=== PATIENT | female | born 1960 | race African-American/Black ===

== ENCOUNTER 2016-10-21 10:12 | Emergency (ER) | payer MEDICARE, MEDICAID ==
[~2016-10-21] VITALS: Ht 157.5 cm; Wt 59.0 kg
[~2016-10-21 10:12] MED LIST: ATOR80TA76 PO; CARV3.1242 PO; DIGO125T82 PO; FURO40TA5 PO; GLIP10TA10 PO; LEVO112T7 PO; LEVO500T15 PO; LORA2TAB95 PO; MAGN400T26 PO; METF1000 PO; PANT40TA4 PO; SITA100T6 PO; WARF3TAB28 PO
[2016-10-21] MEDS ORDERED: HYDROXYZINE 25MG TABLET PO ONE (14:00)
[2016-10-21] MEDS ORDERED: KETOROLAC 30MG/ML VIAL IV ONE (14:00)
[2016-10-21 14:12] VITALS: BP 126/54
== END 2016-10-21 14:33 | disposition home or self-care (01) ==
LOC: ER 11:31
DX: I87.2 Venous insufficiency (chronic) (peripheral) (principal); I87.8 Other specified disorders of veins; I50.9 Heart failure, unspecified; E11.9 Type 2 diabetes mellitus without complications; E03.9 Hypothyroidism, unspecified; Z79.01 Long term (current) use of anticoagulants; Z79.899 Other long term (current) drug therapy; Z88.1 Allergy status to other antibiotic agents; Z88.8 Allergy status to other drugs, medicaments and biological substances
CPT/HCPCS: 96374; 99284; J1885

== ENCOUNTER 2016-12-03 08:34 | Emergency (ER) | payer MEDICARE, MEDICAID ==
[~2016-12-03] VITALS: Ht 152.4 cm; Wt 55.0 kg
[2016-12-03 08:50] VITALS: BP 163/116
[2016-12-03] MEDS ORDERED: LORAZEPAM 0.5MG TABLET PO ONE (11:15)
== END 2016-12-03 11:49 | disposition home or self-care (01) ==
LOC: ER 10:16
DX: F41.9 Anxiety disorder, unspecified (principal); Z88.1 Allergy status to other antibiotic agents; Z88.6 Allergy status to analgesic agent; Z79.899 Other long term (current) drug therapy; I11.0 Hypertensive heart disease with heart failure; I50.9 Heart failure, unspecified; E11.9 Type 2 diabetes mellitus without complications; E03.9 Hypothyroidism, unspecified; Z76.0 Encounter for issue of repeat prescription
CPT/HCPCS: 71010; 93005; 99284

== ENCOUNTER 2017-01-11 07:16 | Inpatient (IN) | payer MEDICARE, MEDICAID ==
[~2017-01-11] VITALS: Ht 157.5 cm; Wt 49.5 kg
[~2017-01-11 07:16] MED LIST changes: +ATOR-2 PO; -ATOR80TA76 PO; -LEVO500T15 PO; +LEVO500T2 PO; +SITA100T11 PO; -SITA100T6 PO
[2017-01-11] MEDS ORDERED: IPRATROPIUM BROMIDE (0.02%) 0.5MG/2.5ML NEB HHN STA (07:19)
[2017-01-11] MEDS ORDERED: ALBUTEROL (0.083%) 2.5MG/3ML NEB HHN STA (07:19)
[2017-01-11] MEDS ORDERED: ONDANSETRON HCL 4MG/2ML VIAL IV STA (07:19)
[2017-01-11] MEDS ORDERED: FUROSEMIDE 40MG/4ML VIAL IVP ONE (07:30)
[2017-01-11] MEDS ORDERED: NITROGLYCERIN OINT 1GM/INCH UDPKT TD ONE (07:30)
[2017-01-11 07:46] LABS: BASOPHILS % 1.3 % (0.0-2.0); EOSINOPHILS % 1.1 % (0.0-5.0); HEMOGLOBIN. 9.2 g/dL (12.0-16.0); LYMPHOCYTES % 16.4 % (20.0-50.0); MEAN CORPUSCULAR HEMOGLOBIN 22.4 pg (28.0-32.0); MEAN CORPUSCULAR VOLUME 75.3 fL (81.0-99.0); MEAN PLATELET VOLUME 8.5 fl (7.4-10.4); MONOCYTES % 6.5 % (2.0-8.0); NEUTROPHILS % 74.7 % (40.0-76.0); PLATELET 281 x1000/uL (130-400); RED BLOOD CELL COUNT 4.12 mill/uL (4.2-5.4); RED CELL DISTRIBUTION WIDTH 20.7 % (11.6-14.6)
[2017-01-11 07:52] LABS: CHLORIDE 98 mEq/L (98-107)
[2017-01-11 07:54] LABS: INR 2.3; PARTIAL THROMBOPLASTIN TIME 30.8 sec (24.0-34.0); PROTHROMBIN TIME 24.1 sec
[2017-01-11 07:59] LABS: CARBON DIOXIDE 26 mEq/L (21-32)
[2017-01-11 08:03] LABS: TROPONIN I < 0.02 ng/mL (0.00-0.04)
[2017-01-11 08:08] LABS: CLARITY URINE CLOUDY (CLEAR); COLOR URINE DARK YELLOW (YELLOW); KETONES URINE TRACE (NEGATIVE); LEUKOCYTE ESTERASE URINE NEGATIVE (NEGATIVE); NITRITE URINE NEGATIVE (NEGATIVE); OCCULT BLOOD URINE NEGATIVE (NEGATIVE); PROTEIN URINE 2+ (NEGATIVE); SPECIFIC GRAVITY URINE 1.029 (1.005-1.030)
[2017-01-11 08:12] LABS: BG BASE EXCESS -1.1 mmol/L (-2.0-2.0); BG BILEVEL POS AIRWAY PRESSURE 15/5; BG CARBOXYHEMOGLOBIN 1.5 % (0.5-1.5); BG DEOXYHEMOGLOBIN 6.7 % (0.0-5.0); BG FRACTION INSPIRED OXYGEN 40; BG HCO3 ACT 22.7 mmol/L (22.0-26.0); BG OXYGEN SATURATION 93.2 % (92.0-98.5); BG OXYHEMOGLOBIN 91.8 % (94.0-97.0); BG PCO2 34.4 mmHg (35.0-45.0); BG PH 7.437 (7.350-7.450); BG PO2 68.4 mmHg (75.0-100.0); BG SAMPLE SITE RIGHT RADIAL; BG TOTAL HEMOGLOBIN 10.4 g/dL (12.0-18.0); BG VENT MODE MASK - BIPAP
[2017-01-11 08:15] LABS: DIGOXIN 1.4 ng/mL (0.9-2.0)
[2017-01-11] MEDS ORDERED: LEVOFLOXACIN 500MG PREMIX 100 ML IV ONE (08:15)
[2017-01-11 13:21] LABS: BG BASE EXCESS -1.4 mmol/L (-2.0-2.0); BG BILEVEL POS AIRWAY PRESSURE 15/5; BG CARBOXYHEMOGLOBIN 1.5 % (0.5-1.5); BG DEOXYHEMOGLOBIN 2.5 % (0.0-5.0); BG HCO3 ACT 22.7 mmol/L (22.0-26.0); BG METHEMOGLOBIN 0.1 % (0.0-1.5); BG OXYGEN SATURATION 97.5 % (92.0-98.5); BG OXYHEMOGLOBIN 95.9 % (94.0-97.0); BG PCO2 35.2 mmHg (35.0-45.0); BG PH 7.427 (7.350-7.450); BG PO2 93.2 mmHg (75.0-100.0); BG SAMPLE SITE RIGHT RADIAL; BG TOTAL HEMOGLOBIN 9.2 g/dL (12.0-18.0); BG VENT MODE MASK - BIPAP; BG VENT RATE 12 set
[2017-01-11] MEDS ORDERED: ONDANSETRON HCL 4MG/2ML VIAL IV PRN (15:00)
[2017-01-11] MEDS ORDERED: DEXTROSE 50% WATER 50ML SYRINGE IV PRN (15:15)
[2017-01-11] MEDS: DIGOXIN 125MCG TABLET PO SCH (17:17)
[2017-01-11] MEDS: INSULIN LISPRO 100 UNITS/ML SUBCUT SCH ×2 (17:20→21:00)
[2017-01-11] MEDS: BLOOD SUGAR DIAGNOSTIC STRIP TEST SCH ×2 (17:20→21:21)
[2017-01-11] MEDS ORDERED: WARFARIN SODIUM 2MG TABLET PO NR (18:00)
[2017-01-12 07:05] LABS: BASOPHILS % 0.3 % (0.0-2.0); HEMATOCRIT. 27.5 % (36.0-48.0); HEMOGLOBIN. 8.4 g/dL (12.0-16.0); LYMPHOCYTES % 7.4 % (20.0-50.0); MEAN CORPUSCULAR HEMOGLOBIN 22.5 pg (28.0-32.0); MEAN CORPUSCULAR VOLUME 73.6 fL (81.0-99.0); MEAN PLATELET VOLUME 8.2 fl (7.4-10.4); MONOCYTES % 8.8 % (2.0-8.0); NEUTROPHILS % 83.5 % (40.0-76.0); PLATELET 188 x1000/uL (130-400); RED BLOOD CELL COUNT 3.74 mill/uL (4.2-5.4); RED CELL DISTRIBUTION WIDTH 20.5 % (11.6-14.6)
[2017-01-12 07:10] LABS: INR 2.8; PROTHROMBIN TIME 29.4 sec
[2017-01-12] MEDS: BLOOD SUGAR DIAGNOSTIC STRIP TEST SCH ×4 (07:30→21:25)
[2017-01-12 07:38] LABS: CARBON DIOXIDE 29 mEq/L (21-32); CHLORIDE 101 mEq/L (98-107); HDL CHOLESTEROL 21 mg/dL (40-59); LDL CHOLESTEROL 28 mg/dL (5-100); TOTAL IRON BINDING CAPACITY 298 ug/dL (250-450)
[2017-01-12] MEDS: INSULIN LISPRO 100 UNITS/ML SUBCUT SCH ×4 (08:00→21:00)
[2017-01-12 08:36] LABS: BG BASE EXCESS 4.6 mmol/L (-2.0-2.0); BG CARBOXYHEMOGLOBIN 1.4 % (0.5-1.5); BG FRACTION INSPIRED OXYGEN 28; BG HCO3 ACT 29.5 mmol/L (22.0-26.0); BG METHEMOGLOBIN 0.3 % (0.0-1.5); BG OXYGEN SATURATION 96.9 % (92.0-98.5); BG OXYHEMOGLOBIN 95.3 % (94.0-97.0); BG PCO2 45.8 mmHg (35.0-45.0); BG PH 7.427 (7.350-7.450); BG PO2 93.9 mmHg (75.0-100.0); BG SAMPLE SITE RIGHT RADIAL; BG TOTAL HEMOGLOBIN 9.9 g/dL (12.0-18.0); BG VENT MODE NASAL CANNULA
[2017-01-12] MEDS: PANTOPRAZOLE 40MG DR TABLET PO SCH (08:36)
[2017-01-12] MEDS: LEVOFLOXACIN 500MG PREMIX 100 ML IV SCH (08:36)
[2017-01-12] MEDS: MAGNESIUM OXIDE 400MG TABLET PO SCH (08:37)
[2017-01-12] MEDS: LEVOTHYROXINE SODIUM 112MCG TABLET PO SCH (08:37)
[2017-01-12] MEDS: CARVEDILOL 3.125 MG TABLET PO SCH ×3 (08:54→21:00)
[2017-01-12] MEDS ORDERED: FUROSEMIDE 40MG/4ML VIAL IVP SCH (09:00)
[2017-01-12] MEDS ORDERED: MAGNESIUM 2 G PREMIX 50 ML IV SCH (12:30)
[2017-01-12] MEDS ORDERED: SODIUM CHLORIDE 0.9% 250 ML IV NR (13:00)
[2017-01-12 15:01] LABS: HEMOGLOBIN 9.5 g/dL (12.0-16.0)
[2017-01-12] MEDS: DIGOXIN 125MCG TABLET PO SCH (17:42)
[2017-01-12] MEDS ORDERED: WARFARIN SODIUM 1MG TABLET PO NR (18:00)
[2017-01-12] MEDS: IPRATROPIUM/ALBUTEROL 0.5-3(2.5)MG/3ML NEB INH PRN (23:58)
[2017-01-13 07:01] LABS: INR 2.5; PROTHROMBIN TIME 25.5 sec
[2017-01-13 07:08] LABS: BASOPHILS % 0.2 % (0.0-2.0); EOSINOPHILS % 0.1 % (0.0-5.0); HEMATOCRIT. 27.4 % (36.0-48.0); HEMOGLOBIN. 8.1 g/dL (12.0-16.0); LYMPHOCYTES % 7.6 % (20.0-50.0); MEAN CORPUSCULAR HEMOGLOBIN 22.1 pg (28.0-32.0); MEAN CORPUSCULAR VOLUME 74.4 fL (81.0-99.0); MEAN PLATELET VOLUME 8.6 fl (7.4-10.4); MONOCYTES % 9.3 % (2.0-8.0); NEUTROPHILS % 82.8 % (40.0-76.0); PLATELET 207 x1000/uL (130-400); RED BLOOD CELL COUNT 3.68 mill/uL (4.2-5.4); RED CELL DISTRIBUTION WIDTH 20.3 % (11.6-14.6)
[2017-01-13 07:20] LABS: CARBON DIOXIDE 31 mEq/L (21-32); CHLORIDE 98 mEq/L (98-107)
[2017-01-13 07:22] LABS: PHOSPHORUS 2.6 mg/dL (2.5-4.9)
[2017-01-13] MEDS: BLOOD SUGAR DIAGNOSTIC STRIP TEST SCH ×4 (07:30→20:47)
[2017-01-13] MEDS: INSULIN LISPRO 100 UNITS/ML SUBCUT SCH ×4 (08:00→21:00)
[2017-01-13] MEDS: LEVOTHYROXINE SODIUM 112MCG TABLET PO SCH (08:48)
[2017-01-13] MEDS: MAGNESIUM OXIDE 400MG TABLET PO SCH (08:48)
[2017-01-13] MEDS: LEVOFLOXACIN 500MG PREMIX 100 ML IV SCH (08:48)
[2017-01-13] MEDS: PANTOPRAZOLE 40MG DR TABLET PO SCH (08:48)
[2017-01-13] MEDS: CARVEDILOL 3.125 MG TABLET PO SCH ×2 (08:49→20:48)
[2017-01-13 11:05] LABS: HEMATOCRIT 29.3 % (36.0-48.0); HEMOGLOBIN 8.7 g/dL (12.0-16.0)
[2017-01-13] MEDS ORDERED: FUROSEMIDE 20MG/2ML VIAL IVP SCH (11:15)
[2017-01-13] MEDS: DIGOXIN 125MCG TABLET PO SCH (17:16)
[2017-01-13] MEDS ORDERED: WARFARIN SODIUM 1MG TABLET PO SCH (18:00)
[2017-01-13] MEDS: IPRATROPIUM/ALBUTEROL 0.5-3(2.5)MG/3ML NEB INH PRN (20:18)
[2017-01-14 07:20] LABS: BASOPHILS % 0.6 % (0.0-2.0); EOSINOPHILS % 0.2 % (0.0-5.0); HEMATOCRIT. 27.7 % (36.0-48.0); HEMOGLOBIN. 8.3 g/dL (12.0-16.0); LYMPHOCYTES % 10.8 % (20.0-50.0); MEAN CORPUSCULAR HEMOGLOBIN 22.2 pg (28.0-32.0); MEAN CORPUSCULAR VOLUME 74.2 fL (81.0-99.0); MEAN PLATELET VOLUME 8.7 fl (7.4-10.4); MONOCYTES % 9.1 % (2.0-8.0); NEUTROPHILS % 79.3 % (40.0-76.0); PLATELET 168 x1000/uL (130-400); RED BLOOD CELL COUNT 3.73 mill/uL (4.2-5.4); RED CELL DISTRIBUTION WIDTH 20.1 % (11.6-14.6)
[2017-01-14 07:29] LABS: INR 2.8; PROTHROMBIN TIME 29.6 sec
[2017-01-14] MEDS: BLOOD SUGAR DIAGNOSTIC STRIP TEST SCH ×4 (07:35→21:09)
[2017-01-14 07:37] LABS: CARBON DIOXIDE 33 mEq/L (21-32); CHLORIDE 98 mEq/L (98-107)
[2017-01-14] MEDS: INSULIN LISPRO 100 UNITS/ML SUBCUT SCH ×5 (08:00→21:13)
[2017-01-14] MEDS: FUROSEMIDE 40MG/4ML VIAL IVP SCH ×3 (08:24→17:51)
[2017-01-14] MEDS: LEVOFLOXACIN 500MG PREMIX 100 ML IV SCH (08:24)
[2017-01-14] MEDS: LEVOTHYROXINE SODIUM 112MCG TABLET PO SCH (08:24)
[2017-01-14] MEDS: MAGNESIUM OXIDE 400MG TABLET PO SCH (08:25)
[2017-01-14] MEDS: CARVEDILOL 3.125 MG TABLET PO SCH ×2 (08:25→21:00)
[2017-01-14] MEDS: PANTOPRAZOLE 40MG DR TABLET PO SCH (08:27)
[2017-01-14] MEDS: IPRATROPIUM/ALBUTEROL 0.5-3(2.5)MG/3ML NEB INH PRN ×3 (10:53→21:51)
[2017-01-14] MEDS: ASCORBIC ACID 500 MG TABLET PO SCH (11:47)
[2017-01-14] MEDS: SPIRONOLACTONE 25MG TABLET PO SCH (11:47)
[2017-01-14 12:09] LABS: VITAMIN B12 SERUM 1106 pg/mL (211-911)
[2017-01-14 12:55] LABS: FOLIC ACID (FOLATE) SERUM > 20.00 ng/mL (>5.38)
[2017-01-14] MEDS: FERROUS SULFATE 325MG TABLET PO SCH ×2 (13:18→17:51)
[2017-01-14] MEDS: GUAIFENESIN-DM 200MG-20MG/10ML UDC PO PRN ×2 (13:20→19:07)
[2017-01-14] MEDS: DIGOXIN 125MCG TABLET PO SCH (17:51)
[2017-01-14] MEDS ORDERED: WARFARIN SODIUM 1MG TABLET PO SCH (18:00)
[2017-01-15 06:58] LABS: INR 3.5; PROTHROMBIN TIME 36.7 sec
[2017-01-15 07:19] LABS: BASOPHILS % 0.2 % (0.0-2.0); EOSINOPHILS % 0.9 % (0.0-5.0); HEMATOCRIT. 27.4 % (36.0-48.0); HEMOGLOBIN. 8.4 g/dL (12.0-16.0); MEAN CORPUSCULAR HEMOGLOBIN 22.6 pg (28.0-32.0); MEAN CORPUSCULAR VOLUME 73.9 fL (81.0-99.0); MEAN PLATELET VOLUME 8.9 fl (7.4-10.4); MONOCYTES % 12.1 % (2.0-8.0); NEUTROPHILS % 72.8 % (40.0-76.0); PLATELET 174 x1000/uL (130-400); RED CELL DISTRIBUTION WIDTH 19.8 % (11.6-14.6)
[2017-01-15 07:49] LABS: CARBON DIOXIDE 36 mEq/L (21-32); CHLORIDE 97 mEq/L (98-107)
[2017-01-15] MEDS: INSULIN LISPRO 100 UNITS/ML SUBCUT SCH ×4 (08:00→20:58)
[2017-01-15] MEDS: BLOOD SUGAR DIAGNOSTIC STRIP TEST SCH ×4 (08:01→20:49)
[2017-01-15] MEDS: FERROUS SULFATE 325MG TABLET PO SCH ×3 (08:01→18:07)
[2017-01-15] MEDS: FUROSEMIDE 40MG/4ML VIAL IVP SCH ×2 (08:01→16:58)
[2017-01-15] MEDS: MAGNESIUM OXIDE 400MG TABLET PO SCH (08:01)
[2017-01-15] MEDS: LEVOTHYROXINE SODIUM 112MCG TABLET PO SCH (08:01)
[2017-01-15] MEDS: LOSARTAN POTASSIUM 25 MG TABLET PO SCH (08:02)
[2017-01-15] MEDS: LEVOFLOXACIN 500MG PREMIX 100 ML IV SCH (08:02)
[2017-01-15] MEDS: CARVEDILOL 3.125 MG TABLET PO SCH ×2 (08:02→20:49)
[2017-01-15] MEDS: SPIRONOLACTONE 25MG TABLET PO SCH (08:02)
[2017-01-15] MEDS: ASCORBIC ACID 500 MG TABLET PO SCH (08:02)
[2017-01-15] MEDS: FAMOTIDINE 20MG TABLET PO SCH ×2 (08:02→20:48)
[2017-01-15] MEDS: GUAIFENESIN-DM 200MG-20MG/10ML UDC PO PRN ×3 (08:05→20:48)
[2017-01-15] MEDS: IPRATROPIUM/ALBUTEROL 0.5-3(2.5)MG/3ML NEB INH PRN ×2 (08:31→20:30)
[2017-01-15] MEDS: DIGOXIN 125MCG TABLET PO SCH (18:07)
[2017-01-16] MEDS: LEVOTHYROXINE SODIUM 112MCG TABLET PO SCH (06:38)
[2017-01-16] MEDS: BLOOD SUGAR DIAGNOSTIC STRIP TEST SCH ×4 (06:38→21:25)
[2017-01-16] MEDS: GUAIFENESIN-DM 200MG-20MG/10ML UDC PO PRN ×3 (07:00→21:24)
[2017-01-16] MEDS: INSULIN LISPRO 100 UNITS/ML SUBCUT SCH ×4 (07:00→21:00)
[2017-01-16 07:34] LABS: BASOPHILS % 0.6 % (0.0-2.0); EOSINOPHILS % 1.1 % (0.0-5.0); HEMATOCRIT. 27.3 % (36.0-48.0); HEMOGLOBIN. 8.3 g/dL (12.0-16.0); LYMPHOCYTES % 15.8 % (20.0-50.0); MEAN CORPUSCULAR HEMOGLOBIN 22.6 pg (28.0-32.0); MEAN CORPUSCULAR VOLUME 74.5 fL (81.0-99.0); MEAN PLATELET VOLUME 8.5 fl (7.4-10.4); MONOCYTES % 13.1 % (2.0-8.0); NEUTROPHILS % 69.4 % (40.0-76.0); PLATELET 185 x1000/uL (130-400); RED BLOOD CELL COUNT 3.67 mill/uL (4.2-5.4); RED CELL DISTRIBUTION WIDTH 19.7 % (11.6-14.6)
[2017-01-16 07:44] LABS: INR 3.1
[2017-01-16 07:58] LABS: CARBON DIOXIDE 36 mEq/L (21-32); CHLORIDE 102 mEq/L (98-107)
[2017-01-16] MEDS: FUROSEMIDE 40MG/4ML VIAL IVP SCH (08:31)
[2017-01-16] MEDS: SPIRONOLACTONE 25MG TABLET PO SCH (08:31)
[2017-01-16] MEDS: CARVEDILOL 3.125 MG TABLET PO SCH ×2 (08:31→21:00)
[2017-01-16] MEDS: FAMOTIDINE 20MG TABLET PO SCH ×2 (08:32→21:24)
[2017-01-16] MEDS: ASCORBIC ACID 500 MG TABLET PO SCH (08:32)
[2017-01-16] MEDS: LOSARTAN POTASSIUM 25 MG TABLET PO SCH (08:32)
[2017-01-16] MEDS: MAGNESIUM OXIDE 400MG TABLET PO SCH (08:32)
[2017-01-16] MEDS: FERROUS SULFATE 325MG TABLET PO SCH ×3 (08:32→17:20)
[2017-01-16] MEDS: IPRATROPIUM/ALBUTEROL 0.5-3(2.5)MG/3ML NEB INH PRN ×2 (08:41→20:54)
[2017-01-16] MEDS ORDERED: LEVOFLOXACIN 500MG TABLET PO SCH (09:00)
[2017-01-16] MEDS ORDERED: POTASSIUM CHLORIDE INJ 60 MEQ in DEXT 5% WATER 500 ML IV SCH (09:30)
[2017-01-16] MEDS: DIGOXIN 125MCG TABLET PO SCH (17:20)
[2017-01-16] MEDS ORDERED: WARFARIN SODIUM 1MG TABLET PO NR (18:00)
[2017-01-17] MEDS: IPRATROPIUM/ALBUTEROL 0.5-3(2.5)MG/3ML NEB INH PRN (01:36)
[2017-01-17 07:11] LABS: HEMATOCRIT. 22.5 % (36.0-48.0); MEAN CORPUSCULAR HEMOGLOBIN 22.5 pg (28.0-32.0); MEAN CORPUSCULAR VOLUME 74.3 fL (81.0-99.0); MEAN PLATELET VOLUME 8.1 fl (7.4-10.4); PLATELET 157 x1000/uL (130-400); RED BLOOD CELL COUNT 3.03 mill/uL (4.2-5.4); RED CELL DISTRIBUTION WIDTH 19.7 % (11.6-14.6)
[2017-01-17 07:31] LABS: INR 2.8; PROTHROMBIN TIME 28.6 sec
[2017-01-17 07:35] LABS: HEMOGLOBIN. 6.8 g/dL (12.0-16.0)
[2017-01-17] MEDS: BLOOD SUGAR DIAGNOSTIC STRIP TEST SCH ×4 (07:58→21:38)
[2017-01-17] MEDS: INSULIN LISPRO 100 UNITS/ML SUBCUT SCH ×4 (08:00→21:00)
[2017-01-17 08:31] LABS: CARBON DIOXIDE 39 mEq/L (21-32); CHLORIDE 96 mEq/L (98-107)
[2017-01-17] MEDS: FERROUS SULFATE 325MG TABLET PO SCH ×3 (08:35→17:51)
[2017-01-17] MEDS: LEVOTHYROXINE SODIUM 112MCG TABLET PO SCH (08:36)
[2017-01-17 10:22] LABS: PLATELET ESTIMATE NORMAL
[2017-01-17] MEDS: ASCORBIC ACID 500 MG TABLET PO SCH (10:59)
[2017-01-17] MEDS: MAGNESIUM OXIDE 400MG TABLET PO SCH (10:59)
[2017-01-17] MEDS: FAMOTIDINE 20MG TABLET PO SCH ×2 (11:00→21:38)
[2017-01-17] MEDS: CARVEDILOL 3.125 MG TABLET PO SCH ×2 (11:00→21:40)
[2017-01-17] MEDS: POTASSIUM CHLORIDE 20MEQ TABLET SR PO SCH (11:00)
[2017-01-17 11:58] LABS: HEMATOCRIT 27.3 % (36.0-48.0); HEMOGLOBIN 8.3 g/dL (12.0-16.0)
[2017-01-17] MEDS ORDERED: MAGNESIUM 2 G PREMIX 50 ML IV NR (12:00)
[2017-01-17] MEDS: LOSARTAN POTASSIUM 25 MG TABLET PO SCH (12:11)
[2017-01-17 14:53] LABS: BG BASE EXCESS 13.5 mmol/L (-2.0-2.0); BG CARBOXYHEMOGLOBIN 1.1 % (0.5-1.5); BG FRACTION INSPIRED OXYGEN 21; BG HCO3 ACT 39.9 mmol/L (22.0-26.0); BG METHEMOGLOBIN 0.2 % (0.0-1.5); BG OXYGEN SATURATION 85.8 % (92.0-98.5); BG OXYHEMOGLOBIN 84.7 % (94.0-97.0); BG PCO2 62.8 mmHg (35.0-45.0); BG PH 7.421 (7.350-7.450); BG PO2 53.7 mmHg (75.0-100.0); BG SAMPLE SITE RIGHT BRACHIAL; BG TOTAL HEMOGLOBIN 9.5 g/dL (12.0-18.0); BG VENT MODE ROOM AIR
[2017-01-17] MEDS: DIGOXIN 125MCG TABLET PO SCH (17:51)
[2017-01-17] MEDS ORDERED: MORPHINE SULFATE 2 MG/ML CPJ (NOT FOR IM USE) IV NR (21:30)
[2017-01-17] MEDS: ACETAMINOPHEN 325MG TABLET PO PRN (21:38)
[2017-01-17] MEDS ORDERED: MORPHINE SULFATE 4 MG/ML CPJ (NOT FOR IM USE) IV NR (22:29)
[2017-01-17] MEDS ORDERED: HYDROCODONE/ACETAMINOPHEN 5/325MG TABLET PO PRN (22:30)
[2017-01-18] MEDS: BLOOD SUGAR DIAGNOSTIC STRIP TEST SCH ×4 (07:30→21:40)
[2017-01-18 07:49] LABS: MEAN CORPUSCULAR HEMOGLOBIN 22.6 pg (28.0-32.0); MEAN CORPUSCULAR VOLUME 74.7 fL (81.0-99.0); PLATELET 174 x1000/uL (130-400); RED BLOOD CELL COUNT 3.09 mill/uL (4.2-5.4)
[2017-01-18 07:51] LABS: CARBON DIOXIDE 38 mEq/L (21-32); CHLORIDE 95 mEq/L (98-107); TOTAL IRON BINDING CAPACITY 250 ug/dL (250-450); TROPONIN I < 0.02 ng/mL (0.00-0.04)
[2017-01-18] MEDS: INSULIN LISPRO 100 UNITS/ML SUBCUT SCH ×4 (08:00→21:40)
[2017-01-18] MEDS: LOSARTAN POTASSIUM 25 MG TABLET PO SCH (09:04)
[2017-01-18] MEDS: FERROUS SULFATE 325MG TABLET PO SCH ×3 (09:04→17:54)
[2017-01-18] MEDS: FAMOTIDINE 20MG TABLET PO SCH ×2 (09:04→21:33)
[2017-01-18] MEDS: MAGNESIUM OXIDE 400MG TABLET PO SCH (09:04)
[2017-01-18] MEDS: CARVEDILOL 3.125 MG TABLET PO SCH (09:05)
[2017-01-18] MEDS: ASCORBIC ACID 500 MG TABLET PO SCH (09:05)
[2017-01-18] MEDS: LEVOTHYROXINE SODIUM 112MCG TABLET PO SCH (09:05)
[2017-01-18] MEDS: POTASSIUM CHLORIDE 20MEQ TABLET SR PO SCH (09:05)
[2017-01-18] MEDS: FUROSEMIDE 40MG TABLET PO SCH (09:05)
[2017-01-18] MEDS ORDERED: METHYLPREDNISOLONE SOD SUCC 125 MG/2 ML VIAL IV SCH (11:30)
[2017-01-18] MEDS: GUAIFENESIN-DM 200MG-20MG/10ML UDC PO PRN ×2 (12:38→21:43)
[2017-01-18] MEDS ORDERED: FUROSEMIDE 40MG/4ML VIAL IVP NR (13:30)
[2017-01-18] MEDS: METHYLPREDNISOLONE SOD SUCC 40 MG/ML VIAL IV SCH ×2 (14:17→21:33)
[2017-01-18 15:44] LABS: INR 1.9; PROTHROMBIN TIME 19.5 sec
[2017-01-18] MEDS: IPRATROPIUM/ALBUTEROL 0.5-3(2.5)MG/3ML NEB INH PRN (21:30)
[2017-01-18 21:32] LABS: PLATELET ESTIMATE NORMAL
[2017-01-19] MEDS: LEVOTHYROXINE SODIUM 112MCG TABLET PO SCH (06:28)
[2017-01-19] MEDS: METHYLPREDNISOLONE SOD SUCC 40 MG/ML VIAL IV SCH ×3 (06:28→21:50)
[2017-01-19] MEDS: GUAIFENESIN-DM 200MG-20MG/10ML UDC PO PRN ×2 (06:35→20:01)
[2017-01-19 06:48] LABS: BASOPHILS % 0.2 % (0.0-2.0); EOSINOPHILS % 0.1 % (0.0-5.0); HEMATOCRIT. 32.5 % (36.0-48.0); HEMOGLOBIN. 10.3 g/dL (12.0-16.0); LYMPHOCYTES % 7.8 % (20.0-50.0); MEAN CORPUSCULAR HEMOGLOBIN 24.5 pg (28.0-32.0); MEAN PLATELET VOLUME 8.6 fl (7.4-10.4); MONOCYTES % 4.7 % (2.0-8.0); NEUTROPHILS % 87.2 % (40.0-76.0); PLATELET 209 x1000/uL (130-400); RED BLOOD CELL COUNT 4.22 mill/uL (4.2-5.4); RED CELL DISTRIBUTION WIDTH 21.6 % (11.6-14.6)
[2017-01-19] MEDS: BLOOD SUGAR DIAGNOSTIC STRIP TEST SCH ×4 (07:50→21:51)
[2017-01-19 08:10] LABS: INR 1.7; PROTHROMBIN TIME 17.3 sec
[2017-01-19] MEDS: POTASSIUM CHLORIDE 20MEQ TABLET SR PO SCH (08:13)
[2017-01-19] MEDS: MAGNESIUM OXIDE 400MG TABLET PO SCH (08:13)
[2017-01-19] MEDS: ASCORBIC ACID 500 MG TABLET PO SCH (08:13)
[2017-01-19] MEDS: FUROSEMIDE 40MG TABLET PO SCH (08:13)
[2017-01-19] MEDS: FAMOTIDINE 20MG TABLET PO SCH ×2 (08:13→21:50)
[2017-01-19] MEDS: FERROUS SULFATE 325MG TABLET PO SCH ×3 (08:13→17:23)
[2017-01-19 08:26] LABS: CARBON DIOXIDE 35 mEq/L (21-32); CHLORIDE 100 mEq/L (98-107)
[2017-01-19 08:27] LABS: BG BASE EXCESS 12.8 mmol/L (-2.0-2.0); BG CARBOXYHEMOGLOBIN 0.9 % (0.5-1.5); BG DEOXYHEMOGLOBIN 1.1 % (0.0-5.0); BG FRACTION INSPIRED OXYGEN 32; BG HCO3 ACT 39.2 mmol/L (22.0-26.0); BG METHEMOGLOBIN 0.4 % (0.0-1.5); BG OXYGEN SATURATION 98.9 % (92.0-98.5); BG OXYHEMOGLOBIN 97.6 % (94.0-97.0); BG PCO2 59.1 mmHg (35.0-45.0); BG PO2 144.1 mmHg (75.0-100.0); BG SAMPLE SITE RIGHT RADIAL; BG TOTAL HEMOGLOBIN 12.4 g/dL (12.0-18.0); BG VENT MODE NASAL CANNULA
[2017-01-19] MEDS: INSULIN LISPRO 100 UNITS/ML SUBCUT SCH ×4 (08:27→21:55)
[2017-01-19] MEDS: LOSARTAN POTASSIUM 25 MG TABLET PO SCH (09:38)
[2017-01-19] MEDS ORDERED: POTASSIUM CHLORIDE 20MEQ TABLET SR PO NR (10:00)
[2017-01-19] MEDS ORDERED: MAGNESIUM 2 G PREMIX 50 ML IV NR (11:00)
[2017-01-19] MEDS ORDERED: GUAIFENESIN/DM 600MG/30MG ER TAB 12HR PO PRN (12:45)
[2017-01-19] MEDS ORDERED: WARFARIN SODIUM 2MG TABLET PO NR (18:00)
[2017-01-19] MEDS ORDERED: WARFARIN SODIUM 3MG TABLET PO SCH (18:00)
[2017-01-19] MEDS: CARVEDILOL 3.125 MG TABLET PO SCH (21:50)
[2017-01-19] MEDS: IPRATROPIUM/ALBUTEROL 0.5-3(2.5)MG/3ML NEB INH PRN (22:00)
[2017-01-20] MEDS: METHYLPREDNISOLONE SOD SUCC 40 MG/ML VIAL IV SCH ×3 (05:38→21:49)
[2017-01-20] MEDS: LEVOTHYROXINE SODIUM 112MCG TABLET PO SCH (06:39)
[2017-01-20 06:55] LABS: INR 2.4; PROTHROMBIN TIME 25.5 sec
[2017-01-20 07:13] LABS: CARBON DIOXIDE 34 mEq/L (21-32); CHLORIDE 102 mEq/L (98-107)
[2017-01-20 07:14] LABS: HEMATOCRIT. 32.9 % (36.0-48.0); HEMOGLOBIN. 10.2 g/dL (12.0-16.0); MEAN CORPUSCULAR HEMOGLOBIN 24.2 pg (28.0-32.0); MEAN CORPUSCULAR VOLUME 78.4 fL (81.0-99.0); MEAN PLATELET VOLUME 8.2 fl (7.4-10.4); PLATELET 238 x1000/uL (130-400); RED BLOOD CELL COUNT 4.19 mill/uL (4.2-5.4); RED CELL DISTRIBUTION WIDTH 22.4 % (11.6-14.6)
[2017-01-20] MEDS: FERROUS SULFATE 325MG TABLET PO SCH ×3 (08:00→17:09)
[2017-01-20] MEDS: INSULIN LISPRO 100 UNITS/ML SUBCUT SCH ×4 (08:00→21:51)
[2017-01-20] MEDS: BLOOD SUGAR DIAGNOSTIC STRIP TEST SCH ×4 (08:35→21:48)
[2017-01-20] MEDS: POTASSIUM CHLORIDE 20MEQ TABLET SR PO SCH ×2 (08:36→11:15)
[2017-01-20] MEDS: MAGNESIUM OXIDE 400MG TABLET PO SCH ×2 (08:36→11:16)
[2017-01-20] MEDS: LOSARTAN POTASSIUM 25 MG TABLET PO SCH ×2 (08:36→11:16)
[2017-01-20] MEDS: FUROSEMIDE 40MG TABLET PO SCH ×2 (08:36→11:16)
[2017-01-20] MEDS: FAMOTIDINE 20MG TABLET PO SCH ×3 (08:36→21:50)
[2017-01-20] MEDS: CARVEDILOL 3.125 MG TABLET PO SCH ×3 (08:36→21:50)
[2017-01-20] MEDS: ASCORBIC ACID 500 MG TABLET PO SCH ×2 (08:36→11:16)
[2017-01-20] MEDS ORDERED: MAGNESIUM 2 G PREMIX 50 ML IV NR (09:00)
[2017-01-20 13:15] LABS: PLATELET ESTIMATE NORMAL
[2017-01-20] MEDS ORDERED: POTASSIUM CHLORIDE 20MEQ TABLET SR PO NR (16:00)
[2017-01-20] MEDS ORDERED: WARFARIN SODIUM 1MG TABLET PO NR (18:00)
[2017-01-21] MEDS: GUAIFENESIN-DM 200MG-20MG/10ML UDC PO PRN (05:21)
[2017-01-21] MEDS: METHYLPREDNISOLONE SOD SUCC 40 MG/ML VIAL IV SCH ×3 (05:58→21:59)
[2017-01-21 06:27] LABS: INR 1.5; PROTHROMBIN TIME 15.4 sec
[2017-01-21 06:31] LABS: HEMATOCRIT. 37.7 % (36.0-48.0); HEMOGLOBIN. 11.7 g/dL (12.0-16.0); MEAN CORPUSCULAR HEMOGLOBIN 24.3 pg (28.0-32.0); MEAN CORPUSCULAR VOLUME 78.2 fL (81.0-99.0); MEAN PLATELET VOLUME 8.1 fl (7.4-10.4); PLATELET 276 x1000/uL (130-400); RED BLOOD CELL COUNT 4.83 mill/uL (4.2-5.4); RED CELL DISTRIBUTION WIDTH 22.6 % (11.6-14.6)
[2017-01-21 06:47] LABS: CHLORIDE 93 mEq/L (98-107)
[2017-01-21 06:53] LABS: CARBON DIOXIDE 36 mEq/L (21-32)
[2017-01-21] MEDS ORDERED: IOHEXOL-300 100 ML BOTTLE ONE (07:18)
[2017-01-21] MEDS ORDERED: LIDOCAINE HCL 1% 20ML VIAL (Pyxis) INJ ONE (07:18)
[2017-01-21] MEDS ORDERED: FENTANYL CITRATE/PF 50MCG/ML 2ML VIAL ONE (07:19)
[2017-01-21] MEDS ORDERED: MIDAZOLAM HCL 2 MG/2 ML VIAL ONE ×2 (07:20→07:50)
[2017-01-21] MEDS: LEVOTHYROXINE SODIUM 112MCG TABLET PO SCH (07:30)
[2017-01-21] MEDS ORDERED: HEPARIN SODIUM 1,000 UNIT/1ML VIAL IV ONE (07:30)
[2017-01-21] MEDS: BLOOD SUGAR DIAGNOSTIC STRIP TEST SCH ×4 (07:30→20:14)
[2017-01-21] MEDS: INSULIN LISPRO 100 UNITS/ML SUBCUT SCH ×4 (08:00→20:17)
[2017-01-21] MEDS: FERROUS SULFATE 325MG TABLET PO SCH ×3 (08:00→17:36)
[2017-01-21 08:07] LABS: PLATELET ESTIMATE NORMAL
[2017-01-21] MEDS ORDERED: ATROPINE SULFATE 1MG/10ML SYR IV PRN (08:30)
[2017-01-21] MEDS ORDERED: ACETAMINOPHEN 325MG TABLET PO PRN (08:30)
[2017-01-21 08:59] LABS: BG BASE EXCESS 12.7 mmol/L (-2.0-2.0); BG CARBOXYHEMOGLOBIN 1.2 % (0.5-1.5); BG DEOXYHEMOGLOBIN 2.9 % (0.0-5.0); BG FRACTION INSPIRED OXYGEN 28; BG HCO3 ACT 38.7 mmol/L (22.0-26.0); BG METHEMOGLOBIN 0.3 % (0.0-1.5); BG OXYGEN SATURATION 97.1 % (92.0-98.5); BG OXYHEMOGLOBIN 95.6 % (94.0-97.0); BG PCO2 56.5 mmHg (35.0-45.0); BG PH 7.454 (7.350-7.450); BG PO2 92.9 mmHg (75.0-100.0); BG SAMPLE SITE LEFT BRACHIAL; BG TOTAL HEMOGLOBIN 12.1 g/dL (12.0-18.0); BG VENT MODE NASAL CANNULA
[2017-01-21] MEDS: FAMOTIDINE 20MG TABLET PO SCH ×2 (09:00→20:13)
[2017-01-21] MEDS: CARVEDILOL 3.125 MG TABLET PO SCH ×2 (09:00→20:14)
[2017-01-21] MEDS: LOSARTAN POTASSIUM 25 MG TABLET PO SCH (09:00)
[2017-01-21] MEDS: ASCORBIC ACID 500 MG TABLET PO SCH (09:00)
[2017-01-21] MEDS: POTASSIUM CHLORIDE 20MEQ TABLET SR PO SCH ×3 (09:00→17:36)
[2017-01-21] MEDS: MAGNESIUM OXIDE 400MG TABLET PO SCH (09:00)
[2017-01-21] MEDS: FUROSEMIDE 40MG TABLET PO SCH (09:00)
[2017-01-21] MEDS ORDERED: HYDRALAZINE 20MG/ML VIAL IV PRN (13:30)
[2017-01-21] MEDS ORDERED: NICARDIPINE 100MCG/ML 10ML VIAL (CATH LAB) IV ONE (13:48)
[2017-01-21] MEDS ORDERED: NITROGLYCERIN 50MCG/ML 10ML VIAL (CATH LAB) IV ONE (13:48)
[2017-01-22] MEDS: METHYLPREDNISOLONE SOD SUCC 40 MG/ML VIAL IV SCH ×2 (06:42→16:32)
[2017-01-22] MEDS: BLOOD SUGAR DIAGNOSTIC STRIP TEST SCH ×4 (06:42→20:26)
[2017-01-22] MEDS: LEVOTHYROXINE SODIUM 112MCG TABLET PO SCH (06:50)
[2017-01-22] MEDS: FERROUS SULFATE 325MG TABLET PO SCH ×3 (07:20→17:57)
[2017-01-22 07:22] LABS: CARBON DIOXIDE 38 mEq/L (21-32); CHLORIDE 95 mEq/L (98-107)
[2017-01-22 07:25] LABS: HEMATOCRIT. 38.7 % (36.0-48.0); HEMOGLOBIN. 11.9 g/dL (12.0-16.0); MEAN CORPUSCULAR HEMOGLOBIN 24.2 pg (28.0-32.0); MEAN CORPUSCULAR VOLUME 78.3 fL (81.0-99.0); MEAN PLATELET VOLUME 8.4 fl (7.4-10.4); PLATELET 295 x1000/uL (130-400); RED BLOOD CELL COUNT 4.94 mill/uL (4.2-5.4); RED CELL DISTRIBUTION WIDTH 22.8 % (11.6-14.6)
[2017-01-22] MEDS: INSULIN LISPRO 100 UNITS/ML SUBCUT SCH ×4 (07:29→20:36)
[2017-01-22] MEDS ORDERED: GENTAMICIN SULF 40MG/ML 2ML VIAL ONE (07:51)
[2017-01-22] MEDS ORDERED: IOHEXOL-300 100 ML BOTTLE ONE (07:52)
[2017-01-22] MEDS ORDERED: LIDOCAINE HCL 1% 20ML VIAL (Pyxis) INJ ONE ×2 (07:52→11:43)
[2017-01-22] MEDS ORDERED: GENTAMICIN/NS IRRIGATION 500 ML IR ONE ×2 (07:52→11:18)
[2017-01-22] MEDS ORDERED: HEPARIN 1,000 UNITS PREMIX 0 ML IV ONE (07:52)
[2017-01-22] MEDS ORDERED: CEFAZOLIN 1000MG PREMIX 50 ML IV ONE ×2 (08:17→08:46)
[2017-01-22] MEDS ORDERED: FENTANYL CITRATE/PF 50MCG/ML 2ML VIAL ONE (08:35)
[2017-01-22] MEDS ORDERED: MIDAZOLAM HCL 2 MG/2 ML VIAL ONE ×2 (08:35→13:31)
[2017-01-22] MEDS: MAGNESIUM OXIDE 400MG TABLET PO SCH (09:00)
[2017-01-22] MEDS: ASCORBIC ACID 500 MG TABLET PO SCH (09:00)
[2017-01-22] MEDS: POTASSIUM CHLORIDE 20MEQ TABLET SR PO SCH ×3 (09:00→17:00)
[2017-01-22] MEDS: FAMOTIDINE 20MG TABLET PO SCH ×2 (09:00→20:25)
[2017-01-22] MEDS: CARVEDILOL 3.125 MG TABLET PO SCH ×2 (09:00→20:26)
[2017-01-22] MEDS ORDERED: DIPHENHYDRAMINE 50MG/ML VIAL ONE (09:09)
[2017-01-22 10:04] LABS: PLATELET ESTIMATE NORMAL
[2017-01-22] MEDS ORDERED: HYDROMORPHONE HCL/PF 2MG/ML (OR) ONE (12:07)
[2017-01-22] MEDS ORDERED: FUROSEMIDE 20MG/2ML VIAL ONE (12:28)
[2017-01-22 13:16] LABS: BG BASE EXCESS 10.5 mmol/L (-2.0-2.0); BG CARBOXYHEMOGLOBIN 0.9 % (0.5-1.5); BG DEOXYHEMOGLOBIN 0.2 % (0.0-5.0); BG HCO3 ACT 37.7 mmol/L (22.0-26.0); BG METHEMOGLOBIN 0.2 % (0.0-1.5); BG OXYGEN SATURATION 99.8 % (92.0-98.5); BG OXYHEMOGLOBIN 98.7 % (94.0-97.0); BG PCO2 61.6 mmHg (35.0-45.0); BG PH 7.405 (7.350-7.450); BG PO2 290.8 mmHg (75.0-100.0); BG SAMPLE SITE LEFT RADIAL; BG TOTAL HEMOGLOBIN 13.8 g/dL (12.0-18.0); BG VENT MODE MASK - NRB
[2017-01-22] MEDS ORDERED: HYDROCODONE/ACETAMINOPHEN 5/325MG TABLET PO PRN (14:15)
[2017-01-22 15:11] LABS: HEMATOCRIT. 40.6 % (36.0-48.0); HEMOGLOBIN. 12.5 g/dL (12.0-16.0); MEAN CORPUSCULAR HEMOGLOBIN 24.2 pg (28.0-32.0); MEAN CORPUSCULAR VOLUME 78.3 fL (81.0-99.0); PLATELET 326 x1000/uL (130-400); RED BLOOD CELL COUNT 5.18 mill/uL (4.2-5.4); RED CELL DISTRIBUTION WIDTH 22.8 % (11.6-14.6)
[2017-01-22] MEDS ORDERED: HYDROMORPHONE HCL/PF 2MG/ML CPJ ONE (15:12)
[2017-01-22] MEDS ORDERED: HYDROMORPHONE HCL/PF 2MG/ML CPJ IV NR ×2 (15:30→15:41)
[2017-01-22] MEDS: LIDOCAINE HCL 1% 20ML VIAL (Pyxis) INJ INFIL NR ×2 (15:56→15:57)
[2017-01-22] MEDS ORDERED: NALOXONE HCL 0.4 MG/ML 1ML VIAL ONE (16:55)
[2017-01-22 17:26] LABS: ATYPICAL LYMPHOCYTES 1
[2017-01-22 17:27] LABS: PLATELET ESTIMATE NORMAL
[2017-01-22] MEDS ORDERED: NALOXONE HCL 0.4 MG/ML 1ML VIAL IV NR (17:30)
[2017-01-22] MEDS: ACETAMINOPHEN 325MG TABLET PO PRN (20:24)
[2017-01-22 22:53] LABS: HEMATOCRIT. 36.1 % (36.0-48.0); HEMOGLOBIN. 11.1 g/dL (12.0-16.0); MEAN CORPUSCULAR HEMOGLOBIN 24.3 pg (28.0-32.0); MEAN CORPUSCULAR VOLUME 78.9 fL (81.0-99.0); MEAN PLATELET VOLUME 8.3 fl (7.4-10.4); PLATELET 261 x1000/uL (130-400); RED BLOOD CELL COUNT 4.57 mill/uL (4.2-5.4); RED CELL DISTRIBUTION WIDTH 22.9 % (11.6-14.6)
[2017-01-23] MEDS: ACETAMINOPHEN 325MG TABLET PO PRN ×4 (01:46→21:18)
[2017-01-23] MEDS: METHYLPREDNISOLONE SOD SUCC 40 MG/ML VIAL IV SCH ×2 (02:01→15:01)
[2017-01-23 05:54] LABS: HEMATOCRIT. 42.8 % (36.0-48.0); HEMOGLOBIN. 12.8 g/dL (12.0-16.0); MEAN CORPUSCULAR VOLUME 80.1 fL (81.0-99.0); MEAN PLATELET VOLUME 8.3 fl (7.4-10.4); PLATELET 226 x1000/uL (130-400); RED BLOOD CELL COUNT 5.35 mill/uL (4.2-5.4); RED CELL DISTRIBUTION WIDTH 22.6 % (11.6-14.6)
[2017-01-23 06:17] LABS: CARBON DIOXIDE 33 mEq/L (21-32); CHLORIDE 94 mEq/L (98-107)
[2017-01-23 06:34] LABS: PLATELET ESTIMATE NORMAL
[2017-01-23] MEDS: BLOOD SUGAR DIAGNOSTIC STRIP TEST SCH ×4 (07:50→20:36)
[2017-01-23] MEDS ORDERED: ALPR2TAB2 PO (08:36)
[2017-01-23] MEDS: MAGNESIUM OXIDE 400MG TABLET PO SCH (08:50)
[2017-01-23] MEDS: LEVOTHYROXINE SODIUM 112MCG TABLET PO SCH (08:50)
[2017-01-23] MEDS: GUAIFENESIN-DM 200MG-20MG/10ML UDC PO PRN ×2 (08:50→15:01)
[2017-01-23] MEDS: FUROSEMIDE 40MG TABLET PO SCH (08:51)
[2017-01-23] MEDS: CARVEDILOL 3.125 MG TABLET PO SCH (08:51)
[2017-01-23] MEDS: FAMOTIDINE 20MG TABLET PO SCH ×2 (08:51→20:33)
[2017-01-23] MEDS: ASCORBIC ACID 500 MG TABLET PO SCH (08:51)
[2017-01-23] MEDS: FERROUS SULFATE 325MG TABLET PO SCH ×3 (08:51→18:28)
[2017-01-23] MEDS: POTASSIUM CHLORIDE 20MEQ TABLET SR PO SCH ×2 (08:52→16:58)
[2017-01-23] MEDS: LOSARTAN POTASSIUM 25 MG TABLET PO SCH (08:52)
[2017-01-23] MEDS: INSULIN LISPRO 100 UNITS/ML SUBCUT SCH ×4 (08:53→20:49)
[2017-01-23] MEDS ORDERED: CEFAZOLIN XX SCH (09:45)
[2017-01-23] MEDS: ALPRAZOLAM 0.5 MG TABLET PO SCH (09:56)
[2017-01-23] MEDS: MICONAZOLE NITRATE 2% OINT 71GM TOP SCH ×2 (12:13→20:36)
[2017-01-23] MEDS: CEFAZOLIN 1000MG PREMIX 50 ML IV SCH ×2 (12:23→16:58)
[2017-01-23 13:01] LABS: PLATELET ESTIMATE NORMAL
[2017-01-23] MEDS: AMLODIPINE 5MG TABLET PO SCH (15:00)
[2017-01-23] MEDS ORDERED: VANCOMYCIN 1 G PREMIX 200 ML IV SCH (20:00)
[2017-01-23] MEDS: CARVEDILOL 6.25 MG TABLET PO SCH (20:36)
[2017-01-24] MEDS: METHYLPREDNISOLONE SOD SUCC 40 MG/ML VIAL IV SCH ×2 (02:29→13:28)
[2017-01-24] MEDS: ACETAMINOPHEN 325MG TABLET PO PRN ×3 (02:41→20:59)
[2017-01-24] MEDS: GUAIFENESIN-DM 200MG-20MG/10ML UDC PO PRN ×3 (02:46→21:18)
[2017-01-24 05:38] LABS: HEMATOCRIT. 36.7 % (36.0-48.0); HEMOGLOBIN. 12.1 g/dL (12.0-16.0); MEAN CORPUSCULAR HEMOGLOBIN 25.2 pg (28.0-32.0); MEAN CORPUSCULAR VOLUME 76.5 fL (81.0-99.0); MEAN PLATELET VOLUME 8.4 fl (7.4-10.4); PLATELET 257 x1000/uL (130-400); RED BLOOD CELL COUNT 4.79 mill/uL (4.2-5.4); RED CELL DISTRIBUTION WIDTH 22.6 % (11.6-14.6)
[2017-01-24 05:54] LABS: CARBON DIOXIDE 38 mEq/L (21-32); CHLORIDE 90 mEq/L (98-107)
[2017-01-24 07:49] LABS: PLATELET ESTIMATE NORMAL
[2017-01-24] MEDS: FERROUS SULFATE 325MG TABLET PO SCH ×3 (08:19→17:02)
[2017-01-24] MEDS: FUROSEMIDE 40MG TABLET PO SCH (08:19)
[2017-01-24] MEDS: LEVOTHYROXINE SODIUM 112MCG TABLET PO SCH (08:19)
[2017-01-24] MEDS: POTASSIUM CHLORIDE 20MEQ TABLET SR PO SCH ×2 (08:19→17:01)
[2017-01-24] MEDS: MAGNESIUM OXIDE 400MG TABLET PO SCH (08:19)
[2017-01-24] MEDS: AMLODIPINE 5MG TABLET PO SCH (08:19)
[2017-01-24] MEDS: ASCORBIC ACID 500 MG TABLET PO SCH (08:19)
[2017-01-24] MEDS: FAMOTIDINE 20MG TABLET PO SCH ×2 (08:19→20:58)
[2017-01-24] MEDS: CARVEDILOL 6.25 MG TABLET PO SCH ×2 (08:20→20:59)
[2017-01-24] MEDS: ALPRAZOLAM 0.5 MG TABLET PO SCH (08:20)
[2017-01-24] MEDS: LOSARTAN POTASSIUM 25 MG TABLET PO SCH (08:20)
[2017-01-24] MEDS: INSULIN LISPRO 100 UNITS/ML SUBCUT SCH ×4 (08:22→21:22)
[2017-01-24] MEDS: BLOOD SUGAR DIAGNOSTIC STRIP TEST SCH ×4 (08:24→21:00)
[2017-01-24] MEDS: MICONAZOLE NITRATE 2% OINT 71GM TOP SCH ×2 (08:36→20:58)
[2017-01-24] MEDS: IPRATROPIUM/ALBUTEROL 0.5-3(2.5)MG/3ML NEB INH PRN (20:58)
[2017-01-24] MEDS: VANCOMYCIN 1 G PREMIX 200 ML IV SCH (21:07)
[2017-01-25] MEDS: METHYLPREDNISOLONE SOD SUCC 40 MG/ML VIAL IV SCH ×2 (02:24→13:11)
[2017-01-25] MEDS: LEVOTHYROXINE SODIUM 112MCG TABLET PO SCH (06:57)
[2017-01-25] MEDS: BLOOD SUGAR DIAGNOSTIC STRIP TEST SCH ×4 (07:00→21:48)
[2017-01-25] MEDS: INSULIN LISPRO 100 UNITS/ML SUBCUT SCH ×4 (07:38→20:07)
[2017-01-25] MEDS: LOSARTAN POTASSIUM 25 MG TABLET PO SCH (07:39)
[2017-01-25] MEDS: ACETAMINOPHEN 325MG TABLET PO PRN ×2 (07:39→19:21)
[2017-01-25] MEDS: ASCORBIC ACID 500 MG TABLET PO SCH (07:39)
[2017-01-25] MEDS: MAGNESIUM OXIDE 400MG TABLET PO SCH (07:40)
[2017-01-25] MEDS: POTASSIUM CHLORIDE 20MEQ TABLET SR PO SCH ×2 (07:40→17:13)
[2017-01-25] MEDS: FERROUS SULFATE 325MG TABLET PO SCH ×3 (07:40→17:13)
[2017-01-25] MEDS: FUROSEMIDE 40MG TABLET PO SCH (07:40)
[2017-01-25] MEDS: ALPRAZOLAM 0.5 MG TABLET PO SCH (07:40)
[2017-01-25] MEDS: CARVEDILOL 6.25 MG TABLET PO SCH ×2 (07:40→20:06)
[2017-01-25] MEDS: FAMOTIDINE 20MG TABLET PO SCH ×2 (07:41→20:06)
[2017-01-25] MEDS: MICONAZOLE NITRATE 2% OINT 71GM TOP SCH ×2 (07:41→20:08)
[2017-01-25 11:49] LABS: HEMATOCRIT. 36.5 % (36.0-48.0); HEMOGLOBIN. 11.2 g/dL (12.0-16.0); MEAN CORPUSCULAR HEMOGLOBIN 24.1 pg (28.0-32.0); MEAN CORPUSCULAR VOLUME 78.3 fL (81.0-99.0); MEAN PLATELET VOLUME 8.4 fl (7.4-10.4); PLATELET 235 x1000/uL (130-400); RED BLOOD CELL COUNT 4.66 mill/uL (4.2-5.4); RED CELL DISTRIBUTION WIDTH 22.6 % (11.6-14.6)
[2017-01-25 13:06] LABS: PLATELET ESTIMATE NORMAL
[2017-01-25] MEDS ORDERED: WARFARIN SODIUM 2MG TABLET PO SCH (18:00)
[2017-01-25] MEDS: GUAIFENESIN-DM 200MG-20MG/10ML UDC PO PRN (19:22)
[2017-01-25] MEDS: VANCOMYCIN 1 G PREMIX 200 ML IV SCH (20:08)
[2017-01-26] MEDS: METHYLPREDNISOLONE SOD SUCC 40 MG/ML VIAL IV SCH ×2 (02:25→18:38)
[2017-01-26] MEDS: LEVOTHYROXINE SODIUM 112MCG TABLET PO SCH (06:07)
[2017-01-26] MEDS: BLOOD SUGAR DIAGNOSTIC STRIP TEST SCH ×3 (06:07→16:50)
[2017-01-26 06:53] LABS: INR 1.3; PROTHROMBIN TIME 13.1 sec
[2017-01-26] MEDS: INSULIN LISPRO 100 UNITS/ML SUBCUT SCH ×3 (08:20→18:41)
[2017-01-26] MEDS: FUROSEMIDE 40MG TABLET PO SCH (08:27)
[2017-01-26] MEDS: MAGNESIUM OXIDE 400MG TABLET PO SCH (08:27)
[2017-01-26] MEDS: FERROUS SULFATE 325MG TABLET PO SCH ×4 (08:27→18:38)
[2017-01-26] MEDS: FAMOTIDINE 20MG TABLET PO SCH (08:27)
[2017-01-26] MEDS: ASCORBIC ACID 500 MG TABLET PO SCH (08:27)
[2017-01-26] MEDS: POTASSIUM CHLORIDE 20MEQ TABLET SR PO SCH ×3 (08:27→18:38)
[2017-01-26] MEDS: CARVEDILOL 6.25 MG TABLET PO SCH (08:28)
[2017-01-26] MEDS: ALPRAZOLAM 0.5 MG TABLET PO SCH (08:28)
[2017-01-26] MEDS: LOSARTAN POTASSIUM 25 MG TABLET PO SCH (09:16)
[2017-01-26] MEDS: MICONAZOLE NITRATE 2% OINT 71GM TOP SCH (09:20)
[2017-01-26] MEDS: GUAIFENESIN-DM 200MG-20MG/10ML UDC PO PRN (13:58)
[2017-01-26] MEDS ORDERED: WARFARIN SODIUM 1MG TABLET PO SCH (18:00)
[2017-01-26 18:52] VITALS: BP 107/64
== END 2017-01-26 19:40 | DRG 853 ==
LOC: ER 07:29 → EDBEDREQ 08:58 → ENRESERV 09:26 → 5EST 10:38 → 3WST 01-21 08:30 → CVICU 01-22 15:00 → 3WST 01-24 15:30
PROVIDERS: ADMIT Internal Medicine; ATTEND Internal Medicine
PROC: 5A09457 Assistance with Respiratory Ventilation, 24-96 Consecutive Hours, Continuous Positive Airway Pressure (ICD-10-PCS; 2017-01-11)
PROC: 02HV33Z Insertion of Infusion Device into Superior Vena Cava, Percutaneous Approach (ICD-10-PCS; 2017-01-13)
PROC: B548ZZA Ultrasonography of Superior Vena Cava, Guidance (ICD-10-PCS; 2017-01-13)
PROC: 30233N1 Transfusion of Nonautologous Red Blood Cells into Peripheral Vein, Percutaneous Approach (ICD-10-PCS; 2017-01-18)
PROC: 4A023N7 Measurement of Cardiac Sampling and Pressure, Left Heart, Percutaneous Approach (ICD-10-PCS; 2017-01-21)
PROC: B2111ZZ Fluoroscopy of Multiple Coronary Arteries using Low Osmolar Contrast (ICD-10-PCS; 2017-01-21)
PROC: 0W9B30Z Drainage of Left Pleural Cavity with Drainage Device, Percutaneous Approach (ICD-10-PCS; principal; 2017-01-22)
PROC: 0JH608Z Insertion of Defibrillator Generator into Chest Subcutaneous Tissue and Fascia, Open Approach (ICD-10-PCS; 2017-01-22)
PROC: 02H63KZ Insertion of Defibrillator Lead into Right Atrium, Percutaneous Approach (ICD-10-PCS; 2017-01-22)
PROC: 02HK3KZ Insertion of Defibrillator Lead into Right Ventricle, Percutaneous Approach (ICD-10-PCS; 2017-01-22)
DX: A41.9 Sepsis, unspecified organism (principal); J18.9 Pneumonia, unspecified organism; J96.21 Acute and chronic respiratory failure with hypoxia; I50.23 Acute on chronic systolic (congestive) heart failure; I44.2 Atrioventricular block, complete; Z99.11 Dependence on respirator [ventilator] status; J94.2 Hemothorax; N18.6 End stage renal disease; J96.22 Acute and chronic respiratory failure with hypercapnia; I13.2 Hypertensive heart and chronic kidney disease with heart failure and with stage 5 chronic kidney disease, or end stage renal disease; I42.9 Cardiomyopathy, unspecified; J98.11 Atelectasis; D50.9 Iron deficiency anemia, unspecified; E03.9 Hypothyroidism, unspecified; E11.22 Type 2 diabetes mellitus with diabetic chronic kidney disease; E78.5 Hyperlipidemia, unspecified; E87.6 Hypokalemia; I08.0 Rheumatic disorders of both mitral and aortic valves; I25.10 Atherosclerotic heart disease of native coronary artery without angina pectoris; I27.2 Other secondary pulmonary hypertension; I48.0 Paroxysmal atrial fibrillation; J20.9 Acute bronchitis, unspecified; K21.9 Gastro-esophageal reflux disease without esophagitis; R13.10 Dysphagia, unspecified; R26.9 Unspecified abnormalities of gait and mobility; Z79.01 Long term (current) use of anticoagulants; Z79.4 Long term (current) use of insulin; Z79.84 Long term (current) use of oral hypoglycemic drugs; Z82.49 Family history of ischemic heart disease and other diseases of the circulatory system; Z83.3 Family history of diabetes mellitus; Z86.74 Personal history of sudden cardiac arrest; Z87.11 Personal history of peptic ulcer disease; Z87.891 Personal history of nicotine dependence; Z90.49 Acquired absence of other specified parts of digestive tract; Z95.2 Presence of prosthetic heart valve; Z95.810 Presence of automatic (implantable) cardiac defibrillator; Z88.1 Allergy status to other antibiotic agents; Z88.8 Allergy status to other drugs, medicaments and biological substances
CPT/HCPCS: 33249; 36415; 36569; 36600; 71010; 71250; 75820; 76937; 80048; 80053; 80061; 80162; 81001; 82270; 82375; 82607; 82728; 82746; 82805; 82962; 83036; 83540; 83550; 83605; 83615; 83690; 83735; 83880; 84100; 84145; 84443; 84484; 85014; 85018; 85025; 85044; 85246; 85247; 85610; 85730; 86850; 86900; 86920; 87040; 87086; 87186; 92610; 93005; 93306; 93454; 93641; 93970; 94640; 94660; 97110; 97116; 97162; 97164; 97166; 97168; 97530; 97535; 99291; A4565; C1721; C1725; C1769; C1887; C1892; C1893; C1894; C1898; J0690; J1170; J1200; J1580; J1644; J1815; J1940; J1956; J2250; J2310; J2405; J2920; J2930; J3010; J3370; J3475; J3480; J3490; J7040; J7050; J7060; J7611; J7620; P9016; Q9967; A4315

== ENCOUNTER 2017-05-06 09:42 | Emergency (ER) | payer MEDICARE, MEDICAID ==
[~2017-05-06] VITALS: Ht 152.4 cm; Wt 48.0 kg
[~2017-05-06 09:42] MED LIST changes: +ALPR2TAB2 PO
[2017-05-06] MEDS ORDERED: KETOROLAC 60MG/2ML VIAL IM ONE (12:30)
[2017-05-06 14:06] VITALS: BP 160/95
== END 2017-05-06 14:13 | disposition home or self-care (01) ==
LOC: ER 10:17
DX: S29.012A Strain of muscle and tendon of back wall of thorax, initial encounter (principal); I11.0 Hypertensive heart disease with heart failure; E11.9 Type 2 diabetes mellitus without complications; Z79.899 Other long term (current) drug therapy; Z88.8 Allergy status to other drugs, medicaments and biological substances; X50.0XXA Overexertion from strenuous movement or load, initial encounter; Y93.89 Activity, other specified; Y99.8 Other external cause status; Y92.89 Other specified places as the place of occurrence of the external cause
CPT/HCPCS: 96372; 99283; J1885

== ENCOUNTER 2018-05-01 22:39 | Inpatient (IN) | payer MEDICARE, MEDICAID ==
[~2018-05-01] VITALS: Ht 157.5 cm; Wt 42.3 kg
[2018-05-01] MEDS ORDERED: NITROGLYCERIN OINT 1GM/INCH UDPKT TD ONE (23:30)
[2018-05-01] MEDS ORDERED: FUROSEMIDE 40MG/4ML VIAL IV ONE (23:30)
[2018-05-02] VITALS (8 sets, daily range): BP systolic 70–151; BP diastolic 35–78
[2018-05-02 01:00] LABS: BASOPHILS % 0.6 % (0.0-2.0); CHLORIDE 104 mEq/L (98-107); EOSINOPHILS % 0.6 % (0.0-5.0); HEMOGLOBIN. 11.4 g/dL (12.0-16.0); LYMPHOCYTES % 11.1 % (20.0-50.0); MEAN CORPUSCULAR HEMOGLOBIN 28.9 pg (28.0-32.0); MEAN CORPUSCULAR VOLUME 91.1 fL (81.0-99.0); MEAN PLATELET VOLUME 8.4 fl (7.4-10.4); MONOCYTES % 8.3 % (2.0-8.0); NEUTROPHILS % 79.4 % (40.0-76.0); PLATELET 147 x1000/uL (130-400); RED BLOOD CELL COUNT 3.96 mill/uL (4.2-5.4); RED CELL DISTRIBUTION WIDTH 18.3 % (11.6-14.6)
[2018-05-02] MEDS ORDERED: LEVOFLOXACIN 750MG PREMIX 150 ML IV ONE (01:00)
[2018-05-02 01:02] LABS: INR 1.7; PROTHROMBIN TIME 16.7 sec (9.1-11.1)
[2018-05-02] MEDS ORDERED: POTA20TA82 PO (03:52)
[2018-05-02] MEDS ORDERED: DEXTROSE 50% WATER 50ML SYRINGE IV PRN (06:00)
[2018-05-02] MEDS ORDERED: LEVOFLOXACIN 500MG PREMIX 100 ML IV SCH (06:00)
[2018-05-02] MEDS ORDERED: IPRATROPIUM BROMIDE (0.02%) 0.5MG/2.5ML NEB HHN PRN (06:00)
[2018-05-02] MEDS ORDERED: NON FORMULARY PATIENT HOME MED EA XX SCH (06:15)
[2018-05-02] MEDS: BLOOD SUGAR DIAGNOSTIC STRIP TEST SCH ×4 (06:44→21:45)
[2018-05-02] MEDS: FUROSEMIDE 40MG/4ML VIAL IVP SCH (08:26)
[2018-05-02] MEDS: INSULIN LISPRO 100 UNITS/ML SUBCUT SCH ×4 (08:27→21:00)
[2018-05-02] MEDS: PANTOPRAZOLE 40MG DR TABLET PO SCH (08:28)
[2018-05-02] MEDS: LEVOTHYROXINE SODIUM 112MCG TABLET PO SCH (08:28)
[2018-05-02] MEDS: GLIPIZIDE 10MG TABLET PO SCH ×2 (08:28→18:21)
[2018-05-02] MEDS: MAGNESIUM OXIDE 400MG TABLET PO SCH (08:28)
[2018-05-02] MEDS: POTASSIUM CHLORIDE 20MEQ TABLET SR PO SCH (08:28)
[2018-05-02] MEDS: LINAGLIPTIN 5MG TABLET PO SCH (08:28)
[2018-05-02] MEDS: CARVEDILOL 3.125 MG TABLET PO SCH ×2 (08:28→20:58)
[2018-05-02] MEDS: ACETAMINOPHEN 325MG TABLET PO PRN (09:33)
[2018-05-02] MEDS: LISINOPRIL 20MG TABLET PO SCH (11:45)
[2018-05-02 12:17] LABS: BG BASE EXCESS 5.2 mmol/L (-2.0-2.0); BG CARBOXYHEMOGLOBIN 1.2 % (0.5-1.5); BG DEOXYHEMOGLOBIN 9.9 % (0.0-5.0); BG HCO3 ACT 29.1 mmol/L (22.0-26.0); BG METHEMOGLOBIN 0.2 % (0.0-1.5); BG OXYHEMOGLOBIN 88.7 % (94.0-97.0); BG PCO2 40.2 mmHg (35.0-45.0); BG PH 7.478 (7.350-7.450); BG PO2 57.7 mmHg (75.0-100.0); BG SAMPLE SITE RIGHT BRACHIAL; BG VENT MODE ROOM AIR
[2018-05-02] MEDS ORDERED: LIDOCAINE HCL/PF 1% 2ML VIAL ONE (13:09)
[2018-05-02] MEDS ORDERED: SODIUM CHLORIDE 0.9% 500 ML IV NR (17:00)
[2018-05-02 17:05] LABS: CLARITY URINE CLEAR (CLEAR); COLOR URINE YELLOW (YELLOW); KETONES URINE NEGATIVE (NEGATIVE); LEUKOCYTE ESTERASE URINE NEGATIVE (NEGATIVE); NITRITE URINE NEGATIVE (NEGATIVE); OCCULT BLOOD URINE NEGATIVE (NEGATIVE); PH URINE 6.5 (4.5-8.0); PROTEIN URINE NEGATIVE (NEGATIVE); SPECIFIC GRAVITY URINE 1.006 (1.005-1.030)
[2018-05-02] MEDS ORDERED: WARFARIN SODIUM 7.5MG TABLET PO NR (18:00)
[2018-05-02] MEDS: DIGOXIN 125MCG TABLET PO SCH (18:21)
[2018-05-02 21:29] LABS: BASOPHILS % 0.3 % (0.0-2.0); EOSINOPHILS % 0.6 % (0.0-5.0); HEMATOCRIT. 31.1 % (36.0-48.0); HEMOGLOBIN. 10.2 g/dL (12.0-16.0); LYMPHOCYTES % 10.5 % (20.0-50.0); MEAN CORPUSCULAR HEMOGLOBIN 29.1 pg (28.0-32.0); MEAN CORPUSCULAR VOLUME 89.2 fL (81.0-99.0); MEAN PLATELET VOLUME 9.2 fl (7.4-10.4); MONOCYTES % 9.2 % (2.0-8.0); NEUTROPHILS % 79.4 % (40.0-76.0); PLATELET 155 x1000/uL (130-400); RED BLOOD CELL COUNT 3.49 mill/uL (4.2-5.4); RED CELL DISTRIBUTION WIDTH 17.5 % (11.6-14.6)
[2018-05-02 21:41] LABS: CHLORIDE 98 mEq/L (98-107)
[2018-05-02] MEDS: LEVOFLOXACIN 500MG PREMIX 100 ML IV SCH (22:52)
[2018-05-03] VITALS (9 sets, daily range): BP systolic 87–115; BP diastolic 42–62
[2018-05-03] MEDS: LEVOTHYROXINE SODIUM 112MCG TABLET PO SCH (05:48)
[2018-05-03] MEDS: BLOOD SUGAR DIAGNOSTIC STRIP TEST SCH ×4 (05:48→20:29)
[2018-05-03] MEDS: PANTOPRAZOLE 40MG DR TABLET PO SCH (05:48)
[2018-05-03] MEDS: LORAZEPAM 1MG TABLET PO PRN (05:48)
[2018-05-03] MEDS: INSULIN LISPRO 100 UNITS/ML SUBCUT SCH ×4 (05:48→20:36)
[2018-05-03] MEDS: GLIPIZIDE 10MG TABLET PO SCH ×2 (06:28→16:50)
[2018-05-03] MEDS: LINAGLIPTIN 5MG TABLET PO SCH (08:09)
[2018-05-03 08:22] LABS: BASOPHILS % 0.4 % (0.0-2.0); EOSINOPHILS % 0.3 % (0.0-5.0); HEMOGLOBIN. 11.7 g/dL (12.0-16.0); LYMPHOCYTES % 8.7 % (20.0-50.0); MEAN CORPUSCULAR HEMOGLOBIN 28.4 pg (28.0-32.0); MEAN CORPUSCULAR VOLUME 90.1 fL (81.0-99.0); MEAN PLATELET VOLUME 8.6 fl (7.4-10.4); MONOCYTES % 10.9 % (2.0-8.0); NEUTROPHILS % 79.7 % (40.0-76.0); PLATELET 117 x1000/uL (130-400); RED CELL DISTRIBUTION WIDTH 17.8 % (11.6-14.6)
[2018-05-03 08:38] LABS: D-DIMER 1.35 mg/L FEU (<0.50); INR 1.8; PROTHROMBIN TIME 17.6 sec (9.1-11.1)
[2018-05-03] MEDS: FUROSEMIDE 40MG/4ML VIAL IVP SCH (08:49)
[2018-05-03] MEDS: POTASSIUM CHLORIDE 20MEQ TABLET SR PO SCH (08:49)
[2018-05-03] MEDS: MAGNESIUM OXIDE 400MG TABLET PO SCH (08:49)
[2018-05-03] MEDS: CARVEDILOL 3.125 MG TABLET PO SCH ×2 (08:50→20:28)
[2018-05-03] MEDS: LISINOPRIL 20MG TABLET PO SCH (08:50)
[2018-05-03 09:31] LABS: CHLORIDE 97 mEq/L (98-107)
[2018-05-03 09:41] LABS: LDL CHOLESTEROL 52 mg/dL (5-100)
[2018-05-03 09:43] LABS: HDL CHOLESTEROL 36 mg/dL (40-59)
[2018-05-03 09:58] LABS: DIGOXIN 0.8 ng/mL (0.9-2.0)
[2018-05-03] MEDS: ENOXAPARIN 40MG/0.4ML SYR SUBCUT SCH (14:37)
[2018-05-03] MEDS: DIGOXIN 125MCG TABLET PO SCH (17:23)
[2018-05-03] MEDS ORDERED: WARFARIN SODIUM 7.5MG TABLET PO NR (18:00)
[2018-05-03] MEDS: LISINOPRIL 5MG TABLET PO SCH (20:29)
[2018-05-03] MEDS: LEVOFLOXACIN 500MG PREMIX 100 ML IV SCH (22:41)
[2018-05-04] VITALS (14 sets, daily range): BP systolic 70–155; BP diastolic 39–84
[2018-05-04] MEDS: ENOXAPARIN 40MG/0.4ML SYR SUBCUT SCH ×2 (02:00→13:31)
[2018-05-04] MEDS: GLIPIZIDE 10MG TABLET PO SCH ×2 (06:21→17:41)
[2018-05-04] MEDS: LEVOTHYROXINE SODIUM 112MCG TABLET PO SCH (06:21)
[2018-05-04] MEDS: PANTOPRAZOLE 40MG DR TABLET PO SCH (06:21)
[2018-05-04] MEDS: LORAZEPAM 1MG TABLET PO PRN (06:21)
[2018-05-04] MEDS: BLOOD SUGAR DIAGNOSTIC STRIP TEST SCH ×4 (06:31→20:28)
[2018-05-04] MEDS: INSULIN LISPRO 100 UNITS/ML SUBCUT SCH ×4 (07:20→20:29)
[2018-05-04 07:26] LABS: INR 1.8; PROTHROMBIN TIME 17.8 sec (9.1-11.1)
[2018-05-04 07:35] LABS: BASOPHILS % 0.4 % (0.0-2.0); EOSINOPHILS % 2.1 % (0.0-5.0); HEMOGLOBIN. 11.4 g/dL (12.0-16.0); LYMPHOCYTES % 16.1 % (20.0-50.0); MEAN CORPUSCULAR HEMOGLOBIN 28.9 pg (28.0-32.0); MEAN CORPUSCULAR VOLUME 88.8 fL (81.0-99.0); MEAN PLATELET VOLUME 8.9 fl (7.4-10.4); MONOCYTES % 9.8 % (2.0-8.0); NEUTROPHILS % 71.6 % (40.0-76.0); PLATELET 111 x1000/uL (130-400); RED BLOOD CELL COUNT 3.95 mill/uL (4.2-5.4); RED CELL DISTRIBUTION WIDTH 17.9 % (11.6-14.6)
[2018-05-04] MEDS: LINAGLIPTIN 5MG TABLET PO SCH (08:15)
[2018-05-04] MEDS: MAGNESIUM OXIDE 400MG TABLET PO SCH (08:15)
[2018-05-04] MEDS: FUROSEMIDE 40MG/4ML VIAL IVP SCH (08:15)
[2018-05-04] MEDS: POTASSIUM CHLORIDE 20MEQ TABLET SR PO SCH (08:15)
[2018-05-04] MEDS: CARVEDILOL 3.125 MG TABLET PO SCH ×2 (08:16→21:00)
[2018-05-04] MEDS: LISINOPRIL 5MG TABLET PO SCH ×2 (08:16→21:00)
[2018-05-04 08:24] LABS: CHLORIDE 99 mEq/L (98-107)
[2018-05-04] MEDS: ACETAMINOPHEN 325MG TABLET PO PRN (13:31)
[2018-05-04] MEDS ORDERED: SODIUM CHLORIDE 0.9% 250 ML IV ONE (16:30)
[2018-05-04] MEDS: DIGOXIN 125MCG TABLET PO SCH (17:41)
[2018-05-04] MEDS ORDERED: WARFARIN SODIUM 10MG TABLET PO SCH (18:00)
[2018-05-04] MEDS: LEVOFLOXACIN 500MG PREMIX 100 ML IV SCH (22:21)
[2018-05-05] VITALS (8 sets, daily range): BP systolic 90–172; BP diastolic 51–66
[2018-05-05] MEDS: ENOXAPARIN 40MG/0.4ML SYR SUBCUT SCH ×2 (02:09→13:27)
[2018-05-05] MEDS: LORAZEPAM 1MG TABLET PO PRN (05:49)
[2018-05-05] MEDS: BLOOD SUGAR DIAGNOSTIC STRIP TEST SCH ×4 (05:58→20:46)
[2018-05-05 06:48] LABS: EOSINOPHILS % 3.1 % (0.0-5.0); HEMATOCRIT. 36.1 % (36.0-48.0); HEMOGLOBIN. 11.4 g/dL (12.0-16.0); LYMPHOCYTES % 25.8 % (20.0-50.0); MEAN CORPUSCULAR HEMOGLOBIN 28.1 pg (28.0-32.0); MEAN CORPUSCULAR VOLUME 88.6 fL (81.0-99.0); MEAN PLATELET VOLUME 9.4 fl (7.4-10.4); MONOCYTES % 9.9 % (2.0-8.0); NEUTROPHILS % 60.2 % (40.0-76.0); PLATELET 194 x1000/uL (130-400); RED BLOOD CELL COUNT 4.08 mill/uL (4.2-5.4); RED CELL DISTRIBUTION WIDTH 17.9 % (11.6-14.6)
[2018-05-05 07:05] LABS: INR 1.4; PROTHROMBIN TIME 14.1 sec (9.1-11.1)
[2018-05-05 07:54] LABS: CHLORIDE 99 mEq/L (98-107)
[2018-05-05] MEDS: INSULIN LISPRO 100 UNITS/ML SUBCUT SCH ×4 (08:10→20:46)
[2018-05-05] MEDS: FUROSEMIDE 40MG/4ML VIAL IVP SCH (09:02)
[2018-05-05] MEDS: LISINOPRIL 5MG TABLET PO SCH ×2 (09:03→21:00)
[2018-05-05] MEDS: MAGNESIUM OXIDE 400MG TABLET PO SCH (09:03)
[2018-05-05] MEDS: PANTOPRAZOLE 40MG DR TABLET PO SCH (09:04)
[2018-05-05] MEDS: CARVEDILOL 3.125 MG TABLET PO SCH ×2 (09:04→21:00)
[2018-05-05] MEDS: LINAGLIPTIN 5MG TABLET PO SCH (09:04)
[2018-05-05] MEDS: GLIPIZIDE 10MG TABLET PO SCH ×2 (09:05→16:33)
[2018-05-05] MEDS: LEVOTHYROXINE SODIUM 112MCG TABLET PO SCH (09:05)
[2018-05-05] MEDS: POTASSIUM CHLORIDE 20MEQ TABLET SR PO SCH (09:05)
[2018-05-05] MEDS: AMLODIPINE 2.5MG TABLET PO SCH ×2 (13:30→21:00)
[2018-05-05] MEDS: DIGOXIN 125MCG TABLET PO SCH (16:33)
[2018-05-05] MEDS ORDERED: WARFARIN SODIUM 10MG TABLET PO SCH (18:00)
[2018-05-05] MEDS ORDERED: SODIUM CHLORIDE 0.9% 250 ML IV SCH (20:45)
[2018-05-05] MEDS ORDERED: LEVOFLOXACIN 500MG TABLET PO SCH (21:00)
[2018-05-06] VITALS: BP 103/61
[2018-05-06] MEDS: ENOXAPARIN 40MG/0.4ML SYR SUBCUT SCH ×2 (00:54→09:32)
[2018-05-06 04:00] VITALS: BP 121/74
[2018-05-06] MEDS: LORAZEPAM 1MG TABLET PO PRN (05:59)
[2018-05-06] MEDS: BLOOD SUGAR DIAGNOSTIC STRIP TEST SCH ×3 (07:40→17:29)
[2018-05-06 07:47] LABS: BASOPHILS % 1.2 % (0.0-2.0); EOSINOPHILS % 5.1 % (0.0-5.0); HEMATOCRIT. 32.6 % (36.0-48.0); HEMOGLOBIN. 10.6 g/dL (12.0-16.0); LYMPHOCYTES % 23.8 % (20.0-50.0); MEAN CORPUSCULAR VOLUME 88.6 fL (81.0-99.0); MEAN PLATELET VOLUME 8.8 fl (7.4-10.4); MONOCYTES % 10.9 % (2.0-8.0); PLATELET 173 x1000/uL (130-400); RED BLOOD CELL COUNT 3.67 mill/uL (4.2-5.4)
[2018-05-06 07:49] LABS: INR 2.4; PROTHROMBIN TIME 23.3 sec (9.1-11.1)
[2018-05-06 08:00] VITALS: BP 93/65
[2018-05-06] MEDS: INSULIN LISPRO 100 UNITS/ML SUBCUT SCH ×3 (08:10→17:29)
[2018-05-06] MEDS ORDERED: FAMOTIDINE 20MG TABLET PO SCH (09:00)
[2018-05-06] MEDS: AMLODIPINE 2.5MG TABLET PO SCH (09:00)
[2018-05-06] MEDS: CARVEDILOL 3.125 MG TABLET PO SCH (09:00)
[2018-05-06] MEDS: FUROSEMIDE 40MG/4ML VIAL IVP SCH (09:00)
[2018-05-06] MEDS: LISINOPRIL 5MG TABLET PO SCH (09:00)
[2018-05-06] MEDS: MAGNESIUM OXIDE 400MG TABLET PO SCH (09:28)
[2018-05-06] MEDS: LEVOTHYROXINE SODIUM 112MCG TABLET PO SCH (09:28)
[2018-05-06] MEDS: GLIPIZIDE 10MG TABLET PO SCH ×2 (09:28→17:02)
[2018-05-06] MEDS: POTASSIUM CHLORIDE 20MEQ TABLET SR PO SCH (09:29)
[2018-05-06] MEDS: LINAGLIPTIN 5MG TABLET PO SCH (09:32)
[2018-05-06 10:02] LABS: CHLORIDE 102 mEq/L (98-107)
[2018-05-06 16:37] VITALS: BP 96/74
[2018-05-06] MEDS: DIGOXIN 125MCG TABLET PO SCH (17:01)
[2018-05-06] MEDS ORDERED: WARFARIN SODIUM 5MG TABLET PO SCH (18:00)
== END 2018-05-06 18:50 | disposition home or self-care (01) | DRG 291 ==
LOC: ER 22:39 → 7WST 05-02 01:32 → EDBEDREQDT 05-02 01:35 → EDBEDREQ 05-02 01:35 → EDBEDREQTM 05-02 01:35 → ENRESERV 05-02 01:50 → 3WST 05-02 21:20 → 7WST 05-05 01:07
PROVIDERS: ADMIT Internal Medicine; ATTEND Internal Medicine
DX: I11.0 Hypertensive heart disease with heart failure (principal); J96.21 Acute and chronic respiratory failure with hypoxia; J18.9 Pneumonia, unspecified organism; E46 Unspecified protein-calorie malnutrition; Z68.1 Body mass index [BMI] 19.9 or less, adult; I50.23 Acute on chronic systolic (congestive) heart failure; I42.9 Cardiomyopathy, unspecified; D50.9 Iron deficiency anemia, unspecified; I25.10 Atherosclerotic heart disease of native coronary artery without angina pectoris; E78.00 Pure hypercholesterolemia, unspecified; K21.9 Gastro-esophageal reflux disease without esophagitis; D69.6 Thrombocytopenia, unspecified; E03.9 Hypothyroidism, unspecified; I27.20 Pulmonary hypertension, unspecified; R74.8 Abnormal levels of other serum enzymes; E11.9 Type 2 diabetes mellitus without complications; I34.0 Nonrheumatic mitral (valve) insufficiency; Z82.49 Family history of ischemic heart disease and other diseases of the circulatory system; Z83.3 Family history of diabetes mellitus; Z95.810 Presence of automatic (implantable) cardiac defibrillator; Z95.3 Presence of xenogenic heart valve; Z87.01 Personal history of pneumonia (recurrent); Z87.891 Personal history of nicotine dependence; Z88.8 Allergy status to other drugs, medicaments and biological substances; Z88.1 Allergy status to other antibiotic agents; Z79.01 Long term (current) use of anticoagulants; Z79.2 Long term (current) use of antibiotics; Z79.899 Other long term (current) drug therapy; T88.7XXA Unspecified adverse effect of drug or medicament, initial encounter; T50.2X5A Adverse effect of carbonic-anhydrase inhibitors, benzothiadiazides and other diuretics, initial encounter; Y92.239 Unspecified place in hospital as the place of occurrence of the external cause; I95.2 Hypotension due to drugs
CPT/HCPCS: 36415; 36600; 71045; 80048; 80061; 80162; 82375; 82805; 82962; 83036; 83605; 83735; 83880; 84443; 84484; 85379; 93005; 93306; 93970; 96374; 96375; 97110; 97116; 97162; 97164; 97166; 97535; 99291; C1893; J1650; J1815; J1940; J1956; J3490; J7040; J7050

== ENCOUNTER 2018-11-02 10:21 | Emergency (ER) | payer MEDICARE, MEDICAID ==
[~2018-11-02] VITALS: Ht 157.5 cm; Wt 50.0 kg
[~2018-11-02 10:21] MED LIST changes: +POTA20TA82 PO
[2018-11-02] MEDS ORDERED: ONDANSETRON HCL 4MG/2ML INJ IV ONE (11:00)
[2018-11-02] MEDS ORDERED: MORPHINE SULFATE 4 MG/ML CPJ (NOT FOR IM USE) IV ONE (11:00)
[2018-11-02] MEDS ORDERED: ASPIRIN 81MG TABLET PO ONE (11:30)
[2018-11-02 11:49] LABS: CHLORIDE 101 mEq/L (98-107); EOSINOPHILS % 1.5 % (0.0-5.0); HEMATOCRIT. 35.8 % (36.0-48.0); HEMOGLOBIN. 11.4 g/dL (12.0-16.0); LYMPHOCYTES % 22.3 % (20.0-50.0); MEAN CORPUSCULAR HEMOGLOBIN 28.2 pg (28.0-32.0); MEAN CORPUSCULAR VOLUME 88.6 fL (81.0-99.0); MEAN PLATELET VOLUME 8.6 fl (7.4-10.4); MONOCYTES % 10.3 % (2.0-8.0); NEUTROPHILS % 64.9 % (40.0-76.0); PLATELET 190 x1000/uL (130-400); RED BLOOD CELL COUNT 4.04 mill/uL (4.2-5.4); RED CELL DISTRIBUTION WIDTH 15.9 % (11.6-14.6)
[2018-11-02 11:52] LABS: INR 2.6; PARTIAL THROMBOPLASTIN TIME 35.4 sec (23.4-31.0); PROTHROMBIN TIME 25.4 sec (9.6-11.0)
[2018-11-02 11:54] LABS: ETHANOL BLOOD < 10 mg/dL
[2018-11-02 11:59] LABS: T4 FREE 1.43 ng/dL (0.76-1.46)
[2018-11-02 12:12] LABS: DIGOXIN 1.6 ng/mL (0.9-2.0)
[2018-11-02] MEDS ORDERED: FUROSEMIDE 20MG/2ML VIAL IVP ONE (12:15)
[2018-11-02 14:52] VITALS: BP 124/71
== END 2018-11-02 14:54 | disposition home or self-care (01) ==
LOC: ER 10:21 → CANBEDREQ 18:19
DX: R07.89 Other chest pain (principal); I11.0 Hypertensive heart disease with heart failure; I50.9 Heart failure, unspecified; I25.10 Atherosclerotic heart disease of native coronary artery without angina pectoris; E11.9 Type 2 diabetes mellitus without complications; Z88.8 Allergy status to other drugs, medicaments and biological substances; Z95.0 Presence of cardiac pacemaker; Z79.01 Long term (current) use of anticoagulants
CPT/HCPCS: 36415; 71045; 80053; 80162; 80320; 82962; 83880; 84439; 84443; 84484; 85025; 85610; 85730; 93005; 96374; 96375; 99283; J1940; J2270; J2405; G0480

== ENCOUNTER 2019-03-03 08:37 | Inpatient (IN) | payer MEDICARE, MEDICAID ==
[~2019-03-03] VITALS: Ht 157.5 cm; Wt 42.2 kg
[~2019-03-03 08:37] MED LIST changes: -ALPR2TAB2 PO; -ATOR-2 PO; +ATOR10TA PO; +GABA-531 PO; -LEVO500T2 PO; -WARF3TAB28 PO; +WARF4TAB71 PO
[2019-03-03 09:56] LABS: BASOPHILS % 1.3 % (0.0-2.0); EOSINOPHILS % 0.4 % (0.0-5.0); HEMATOCRIT. 29.6 % (36.0-48.0); HEMOGLOBIN. 9.7 g/dL (12.0-16.0); LYMPHOCYTES % 12.6 % (20.0-50.0); MEAN CORPUSCULAR HEMOGLOBIN 28.8 pg (28.0-32.0); MEAN CORPUSCULAR VOLUME 87.5 fL (81.0-99.0); MEAN PLATELET VOLUME 7.5 fl (7.4-10.4); MONOCYTES % 6.6 % (2.0-8.0); NEUTROPHILS % 79.1 % (40.0-76.0); PLATELET 341 x1000/uL (130-400); RED BLOOD CELL COUNT 3.38 mill/uL (4.2-5.4); RED CELL DISTRIBUTION WIDTH 18.5 % (11.6-14.6)
[2019-03-03 10:04] LABS: CHLORIDE 98 mEq/L (98-107)
[2019-03-03 10:07] LABS: PARTIAL THROMBOPLASTIN TIME 52.7 sec (23.4-31.0)
[2019-03-03] MEDS ORDERED: ACETAMINOPHEN 325MG TABLET PO ONE (10:15)
[2019-03-03] MEDS ORDERED: DIPHENHYDRAMINE 50MG/ML VIAL IV PRN (10:45)
[2019-03-03] MEDS ORDERED: CLONIDINE 0.1MG TABLET PO PRN (10:45)
[2019-03-03] MEDS ORDERED: GUAIFENESIN 200MG/10ML SUGAR FREE UDC PO PRN (10:45)
[2019-03-03] MEDS ORDERED: ONDANSETRON HCL 4MG/2ML INJ IV PRN (10:45)
[2019-03-03] MEDS ORDERED: ZOLPIDEM TARTRATE 5MG TABLET PO PRN (10:45)
[2019-03-03] MEDS ORDERED: DOCUSATE SODIUM 100MG CAPSULE PO PRN (10:45)
[2019-03-03] MEDS ORDERED: NITROGLYCERIN 0.4MG TABLET SL SL PRN (10:45)
[2019-03-03] MEDS ORDERED: KETOROLAC 15MG/ML VIAL IV PRN (10:45)
[2019-03-03] MEDS ORDERED: IPRATROPIUM/ALBUTEROL 0.5-3(2.5)MG/3ML NEB INH PRN (10:45)
[2019-03-03] MEDS ORDERED: MAGNESIUM/ALUMINUM HYDROXIDE/SIMETHICONE 30ML UDC PO PRN (10:45)
[2019-03-03] MEDS ORDERED: DEXTROSE 50% WATER 50ML SYRINGE IV PRN (10:45)
[2019-03-03 10:52] LABS: *AMPHETAMINES SCREEN URINE NEGATIVE (NEGATIVE); *BARBITURATES SCREEN URINE NEGATIVE (NEGATIVE); *BENZODIAZEPINES SCREEN URINE NEGATIVE (NEGATIVE); *COCAINE SCREEN URINE NEGATIVE (NEGATIVE); METHADONE URINE SCREEN NEGATIVE (NEGATIVE); OPIATES URINE SCREEN NEGATIVE (NEGATIVE); PHENCYCLIDINE URINE SCREEN NEGATIVE (NEGATIVE)
[2019-03-03 10:54] LABS: CANNABINOID URINE SCREEN NEGATIVE (NEGATIVE)
[2019-03-03 11:10] LABS: FOLIC ACID (FOLATE) SERUM 19.1 ng/mL (>5.38)
[2019-03-03 12:00] VITALS: BP 127/80
[2019-03-03] MEDS: BLOOD SUGAR DIAGNOSTIC STRIP TEST SCH ×3 (12:01→20:53)
[2019-03-03] MEDS: INSULIN LISPRO 100 UNITS/ML SUBCUT SCH ×3 (12:15→21:02)
[2019-03-03 12:25] VITALS: BP 127/80
[2019-03-03] MEDS: ACETAMINOPHEN 325MG TABLET PO PRN ×2 (13:39→19:00)
[2019-03-03] MEDS: GABAPENTIN 100MG CAPSULE PO SCH ×2 (13:39→21:01)
[2019-03-03 16:00] VITALS: BP 93/63
[2019-03-03] MEDS: SUCRALFATE 1 G/10 ML UDC PO SCH ×2 (16:59→20:56)
[2019-03-03 17:16] LABS: CREATINE KINASE 29 IU/L (26-192)
[2019-03-03 17:17] LABS: CREATINE KINASE MB FRACTION < 1.0 ng/mL (0.5-3.6)
[2019-03-03] MEDS: CARVEDILOL 3.125 MG TABLET PO SCH (17:56)
[2019-03-03] MEDS: FUROSEMIDE 40MG/4ML VIAL IVP SCH (17:59)
[2019-03-03] MEDS ORDERED: WARFARIN SODIUM 4MG TABLET PO SCH (18:00)
[2019-03-03] MEDS: DIGOXIN 125MCG TABLET PO SCH (18:00)
[2019-03-03 20:00] VITALS: BP 72/40
[2019-03-03] MEDS: FAMOTIDINE 20MG TABLET PO SCH (20:48)
[2019-03-03] MEDS: SPIRONOLACTONE 25MG TABLET PO SCH (20:56)
[2019-03-03 22:04] VITALS: BP 72/41
[2019-03-03 22:45] VITALS: BP 92/54
[2019-03-03 23:42] LABS: CREATINE KINASE 19 IU/L (26-192)
[2019-03-03 23:43] LABS: CREATINE KINASE MB FRACTION < 1.0 ng/mL (0.5-3.6)
[2019-03-04] VITALS (9 sets, daily range): BP systolic 89–135; BP diastolic 51–77
[2019-03-04] MEDS: ACETAMINOPHEN 325MG TABLET PO PRN ×3 (01:18→15:10)
[2019-03-04] MEDS ORDERED: CLONIDINE 0.1MG TABLET PO PRN (04:45)
[2019-03-04] MEDS: FUROSEMIDE 40MG/4ML VIAL IVP SCH ×2 (06:00→17:19)
[2019-03-04] MEDS: CARVEDILOL 3.125 MG TABLET PO SCH ×2 (06:00→17:19)
[2019-03-04] MEDS: LEVOTHYROXINE SODIUM 112MCG TABLET PO SCH (06:42)
[2019-03-04] MEDS: SUCRALFATE 1 G/10 ML UDC PO SCH ×4 (06:42→21:00)
[2019-03-04] MEDS: GABAPENTIN 100MG CAPSULE PO SCH ×3 (06:42→21:53)
[2019-03-04] MEDS: INSULIN LISPRO 100 UNITS/ML SUBCUT SCH ×4 (06:44→21:54)
[2019-03-04] MEDS: BLOOD SUGAR DIAGNOSTIC STRIP TEST SCH ×4 (06:44→21:52)
[2019-03-04 07:03] LABS: INR 2.4; PROTHROMBIN TIME 24.1 sec (9.6-11.0)
[2019-03-04] MEDS: FAMOTIDINE 20MG TABLET PO SCH ×2 (08:16→21:53)
[2019-03-04] MEDS: SPIRONOLACTONE 25MG TABLET PO SCH ×2 (08:28→21:00)
[2019-03-04] MEDS: LORAZEPAM 0.5MG TABLET PO PRN ×2 (12:04→16:04)
[2019-03-04] MEDS: DIGOXIN 125MCG TABLET PO SCH (17:42)
[2019-03-04] MEDS ORDERED: WARFARIN SODIUM 2MG TABLET PO SCH (18:00)
[2019-03-04] MEDS: LIDOCAINE 5% PATCH TOP SCH (18:57)
[2019-03-04] MEDS: METHYL SALICYLATE/MENTHOL CREAM 85GM TOP SCH (18:57)
[2019-03-05] VITALS: BP 86/49
[2019-03-05] MEDS: METHYL SALICYLATE/MENTHOL CREAM 85GM TOP SCH ×4 (00:15→17:40)
[2019-03-05] MEDS: ACETAMINOPHEN 325MG TABLET PO PRN (03:05)
[2019-03-05 04:00] VITALS: BP_SYST 111; BP_SYST 86; BP_DIAS 49; BP_DIAS 64
[2019-03-05] MEDS: FUROSEMIDE 40MG/4ML VIAL IVP SCH ×2 (06:00→17:35)
[2019-03-05] MEDS: CARVEDILOL 3.125 MG TABLET PO SCH ×2 (06:00→17:35)
[2019-03-05] MEDS: GABAPENTIN 100MG CAPSULE PO SCH ×2 (06:07→14:09)
[2019-03-05] MEDS: LEVOTHYROXINE SODIUM 112MCG TABLET PO SCH (06:08)
[2019-03-05] MEDS: BLOOD SUGAR DIAGNOSTIC STRIP TEST SCH ×3 (06:09→17:07)
[2019-03-05] MEDS: INSULIN LISPRO 100 UNITS/ML SUBCUT SCH ×3 (06:23→17:07)
[2019-03-05] MEDS: SUCRALFATE 1 G/10 ML UDC PO SCH ×3 (06:29→17:33)
[2019-03-05 06:59] LABS: INR 2.7; PROTHROMBIN TIME 26.1 sec (9.6-11.0)
[2019-03-05 08:00] VITALS: BP 111/69
[2019-03-05] MEDS: FAMOTIDINE 20MG TABLET PO SCH (09:11)
[2019-03-05] MEDS: SPIRONOLACTONE 25MG TABLET PO SCH (09:12)
[2019-03-05] MEDS: LIDOCAINE 5% PATCH TOP SCH (09:12)
[2019-03-05 12:00] VITALS: BP 160/75
[2019-03-05] MEDS: LORAZEPAM 0.5MG TABLET PO PRN (13:01)
[2019-03-05 16:00] VITALS: BP 98/61
[2019-03-05] MEDS: DIGOXIN 125MCG TABLET PO SCH (17:33)
[2019-03-05] MEDS ORDERED: WARFARIN SODIUM 3MG TABLET PO SCH (18:00)
[2019-03-05 18:14] VITALS: BP 98/61
== END 2019-03-05 19:50 | disposition home or self-care (01) | DRG 302 ==
LOC: ER 08:37 → 5WST 10:12 → EDBEDREQTM 10:14 → EDBEDREQ 10:14 → SUPCPDRO 10:32 → CANRESERV 11:46
PROVIDERS: ADMIT Internal Medicine; ATTEND Internal Medicine
DX: I25.10 Atherosclerotic heart disease of native coronary artery without angina pectoris (principal); I50.41 Acute combined systolic (congestive) and diastolic (congestive) heart failure; E44.1 Mild protein-calorie malnutrition; E87.1 Hypo-osmolality and hyponatremia; Z68.1 Body mass index [BMI] 19.9 or less, adult; I11.0 Hypertensive heart disease with heart failure; I42.9 Cardiomyopathy, unspecified; M79.18 Myalgia, other site; I95.9 Hypotension, unspecified; E11.9 Type 2 diabetes mellitus without complications; R07.81 Pleurodynia; D63.8 Anemia in other chronic diseases classified elsewhere; R26.9 Unspecified abnormalities of gait and mobility; E03.9 Hypothyroidism, unspecified; I27.20 Pulmonary hypertension, unspecified; L89.150 Pressure ulcer of sacral region, unstageable; I48.0 Paroxysmal atrial fibrillation; J44.9 Chronic obstructive pulmonary disease, unspecified; Z95.2 Presence of prosthetic heart valve; Z79.01 Long term (current) use of anticoagulants; Z95.810 Presence of automatic (implantable) cardiac defibrillator; Z87.01 Personal history of pneumonia (recurrent); Z79.4 Long term (current) use of insulin; Z88.8 Allergy status to other drugs, medicaments and biological substances; Z88.1 Allergy status to other antibiotic agents; Z88.6 Allergy status to analgesic agent; Z79.899 Other long term (current) drug therapy; Z82.49 Family history of ischemic heart disease and other diseases of the circulatory system
CPT/HCPCS: 36415; 71045; 80061; 80162; 80305; 82550; 82553; 82607; 82746; 82962; 83036; 83540; 83550; 83880; 84443; 84484; 93005; 97162; 97166; 99285; J1815; J1940

== ENCOUNTER 2019-03-25 07:48 | Emergency (ER) | payer MEDICARE, MEDICAID ==
[~2019-03-25] VITALS: Ht 160 cm; Wt 45.0 kg
[2019-03-25 08:13] VITALS: BP 118/72
[2019-03-25] MEDS ORDERED: ACETAMINOPHEN 325MG TABLET PO ONE (09:00)
== END 2019-03-25 09:23 | disposition home or self-care (01) ==
LOC: ER 07:53
DX: E11.40 Type 2 diabetes mellitus with diabetic neuropathy, unspecified (principal); I50.9 Heart failure, unspecified; Z79.899 Other long term (current) drug therapy; Z95.0 Presence of cardiac pacemaker; Z79.84 Long term (current) use of oral hypoglycemic drugs; Z88.1 Allergy status to other antibiotic agents; Z88.6 Allergy status to analgesic agent; Z88.8 Allergy status to other drugs, medicaments and biological substances
CPT/HCPCS: 99282

== ENCOUNTER 2019-04-19 11:23 | Emergency (ER) | payer MEDICARE, MEDICAID ==
[~2019-04-19] VITALS: Ht 157.5 cm; Wt 50.0 kg
[~2019-04-19 11:23] MED LIST changes: +ASPI-1160 MT; -GLIP10TA10 PO; +P20 PO
[2019-04-19] MEDS ORDERED: METOPROLOL TARTRATE 25MG TABLET PO ONE (12:00)
[2019-04-19] MEDS ORDERED: LORAZEPAM 0.5MG TABLET PO ONE (12:00)
[2019-04-19 13:07] VITALS: BP 166/98
== END 2019-04-19 13:11 | disposition home or self-care (01) ==
LOC: ER 11:40
DX: F41.9 Anxiety disorder, unspecified (principal); J45.909 Unspecified asthma, uncomplicated; I11.0 Hypertensive heart disease with heart failure; I50.9 Heart failure, unspecified; E11.9 Type 2 diabetes mellitus without complications; I25.10 Atherosclerotic heart disease of native coronary artery without angina pectoris; Z88.1 Allergy status to other antibiotic agents; Z88.6 Allergy status to analgesic agent; Z88.8 Allergy status to other drugs, medicaments and biological substances; Z79.01 Long term (current) use of anticoagulants; Z79.82 Long term (current) use of aspirin
CPT/HCPCS: 99284

== ENCOUNTER 2019-05-19 09:06 | Emergency (ER) | payer MEDICARE, MEDICAID ==
[~2019-05-19] VITALS: Ht 157.5 cm; Wt 45.0 kg
[2019-05-19 09:25] VITALS: BP 144/67
== END 2019-05-19 10:17 | disposition home or self-care (01) ==
LOC: ER 09:06
DX: I95.9 Hypotension, unspecified (principal); I42.9 Cardiomyopathy, unspecified; I48.91 Unspecified atrial fibrillation; I11.0 Hypertensive heart disease with heart failure; I50.9 Heart failure, unspecified; E07.9 Disorder of thyroid, unspecified; Z88.3 Allergy status to other anti-infective agents; Z88.6 Allergy status to analgesic agent; Z88.8 Allergy status to other drugs, medicaments and biological substances; Z95.0 Presence of cardiac pacemaker; Z95.2 Presence of prosthetic heart valve; Z79.01 Long term (current) use of anticoagulants; Z79.82 Long term (current) use of aspirin
CPT/HCPCS: 99283